=== PATIENT | female | born 1945 | race Asian ===

== ENCOUNTER 2016-05-29 13:17 | Emergency (ER) | payer OTHER ==
[2016-05-29 13:21] VITALS: BP 126/60; PULSE 72; TEMP 97.5; BMI 28.7
--- NOTE | 2016-05-29 14:26 | PDOC ---
History of Present Illness - General Chief Complaint: Pain, Acute Stated Complaint: RT KNEE PAIN Time Seen by Provider: 05/29/16 13:48 History Source: Patient Exam Limitations: No Limitations - History of Present Illness Initial Comments: 05/29/16 14:03 71-year-old female presents to the ED with complaints of right knee pain. Patient states was at home when she had fall twisting her right knee and states pain has continued to the inner aspect of her right knee without weakness, previous injury to the affected area. Patient states mild edema with an abrasion that healed up and states pain is worsened with ambulation. 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 Occurred: reports: other Severity: reports: mild Pain Location: reports: lower extremity Method of Injury: Yes: fall Modifying Factors: improves with: None Loss of Consciousness: no loss of consciousness Associated Symptoms (Fall): trouble walking Past History - Past Medical History Allergies/Adverse Reactions: Allergies Allergy/AdvReac Type Severity Reaction Status Date / Time Penicillins Allergy Verified 05/29/16 13:21 Home Medications: Ambulatory Orders Amlodipine Besylate [Norvasc -] 5 mg PO DAILY 07/15/14 Ciprofloxacin [Cipro -] 250 mg PO BID #6 tablet 07/16/14 HTN: Yes Thyroid Disease: Yes - Immunization History Immunization Up to Date: No - Psycho/Social/Smoking Cessation Hx Anxiety: No Suicidal Ideation: No Smoking History: Never smoked Have you smoked in the past 12 months: No Information on smoking cessation initiated: No Hx Alcohol Use: No Drug/Substance Use Hx: No Substance Use Type: None Hx Substance Use Treatment: No Patient Lives Alone: No Lives with/in: spouse/SO Review of Systems - Review of Systems Able to Perform ROS?: Yes Constitutional: No: Symptoms Reported Musculoskeletal: Yes: Joint Pain (right knee), Joint Swelling (right knee) Integumentary: No: Symptoms Reported Neurological: No: Symptoms reported Hematologic/Lymphatic: No: Symptoms Reported *Physical Exam - Vital Signs Last Vital Signs Temp Pulse Resp BP Pulse Ox 97.5 F L 72 18 126/60 98 05/29/16 13:19 05/29/16 13:19 05/29/16 13:19 05/29/16 13:19 05/29/16 13:19 - Physical Exam General Appearance: Yes: Nourished, Appropriately Dressed. No: Apparent Distress Vascular Pulses: Dorsalis-Pedis (R): 2+ Extremity: positive: Normal Capillary Refill, Normal Inspection, Normal Range of Motion, Tender (over the right meniscus) Integumentary: positive: Normal Color, Warm, Moist Neurologic: positive: Motor Strength 5/5 (ambulatory) ED Treatment Course - RADIOLOGY Radiology Studies Ordered: Category Date Time Status KNEE 3 POS-RIGHT [RAD] Stat Radiology 05/29/16 14:12 Taken Medical Decision Making - Medical Decision Making 05/29/16 14:25 Patient will continual right knee pain for the past 3 weeks after falling and twisting the knee. Patient states pain is worsened today and her aspect and worsened as the day goes on with ambulation. Patient on exam had tenderness over the meniscus. Patient requesting x-ray although I recommend patient see orthopedist and consider other imaging such as an MRI. Patient also requesting a work note since she works upstairs as a medical laboratory technician. 05/29/16 14:40 X-ray shows no acute fracture but with noted swelling to the anterior aspect. Patient will be given orthopedic referral work 2 days and an Bashir wrap. Patient also recommended to take Motrin 400 mg every 8 hours *DC/Admit/Observation/Transfer Diagnosis at time of Disposition: Knee meniscus pain Qualifiers: Laterality: right Qualified Code(s): M25.561 - Pain in right knee - Discharge Dispostion Disposition: HOME Condition at time of disposition: Guarded - Referrals Referrals: Bryce Ulloa MD [Primary Care Provider] - Delonte Orosco MD [Staff Physician] - - Patient Instructions Printed Discharge Instructions: DI for Knee Pain, DI for Knee Effusion Additional Instructions: Please take Motrin 400 mg every 8 hours for inflammation and discomfort. Elevate your extremity when not walking. Use Bashir wrap during the day and remove at night. Please follow-up with referred orthopedist. - Post Discharge Activity Work/School Note: Back to Work
== END 2016-05-29 14:56 | disposition home or self-care (01) ==
LOC: JERFT 13:17
DX: M25.561 Pain in right knee (principal); M25.461 Effusion, right knee; X50.1XXA Overexertion from prolonged static or awkward postures, initial encounter; Y93.89 Activity, other specified; Y92.89 Other specified places as the place of occurrence of the external cause; W18.39XA Other fall on same level, initial encounter; I10 Essential (primary) hypertension; E07.9 Disorder of thyroid, unspecified
CPT/HCPCS: 73562-TC-RT; 99281-25

== ENCOUNTER 2016-07-09 06:13 | Day surgery (SDC) | payer OTHER ==
[2016-07-08 15:42] VITALS: BMI 27.1
[2016-07-09] MEDS ORDERED: DESFLURANE GAS 240 ML BOTTLE IH ONE (07:37)
--- NOTE | 2016-07-09 07:37 | HP ---
Satellite [facility] - Chief Complaint Chief Complaint: right knee pain History Source: Patient Limitations to Obtaining History: No Limitations - Past Medical History Allergies/Adverse Reactions: Allergies Allergy/AdvReac Type Severity Reaction Status Date / Time Penicillins Allergy "RASH,NAUSE Verified 07/08/16 15:43 A,HEADACHE, DIZZYNESS" Cardiovascular: Yes: HTN Endocrine: Yes: Hypothyroidism - Current Medications Current Medications: Home Medications Medication Instructions Recorded Amlodipine Besylate [Norvasc -] 5 mg PO BID 07/15/14 Diazepam [Valium] 5 mg PO PRN PRN 07/08/16 Ibuprofen [Advil -] 200 mg PO PRN PRN 07/08/16 Levothyroxine [Synthroid -] 112 mcg PO DAILY 07/08/16 Triamterene/Hydrochlorothiazid 1 each PO DAILY 07/09/16 [Dyazide 37.5-25 Capsule] Satellite Physical Exam - Physical Examination Vital Signs: Vital Signs Period Temp Pulse Resp BP Sys/Hair Pulse Ox Last 24 Hr 97.5 F-97.5 F 76-76 20-20 132-132/74-74 96 Extremities: Other (right joint line tenderness) Satellite Impression/Plan - Impression/Plan Impression: internal derangement right knee Operative Procedure: arthroscopy right knee Date to be Performed: 07/09/16
[2016-07-09] MEDS ORDERED: LIDOCAINE HCL/PF 2% SDV 5ML VIAL ONE (07:38)
[2016-07-09] MEDS ORDERED: MIDAZOLAM HCL 2 MG/2 ML SINGLE DOSE VIAL ONE (07:39)
[2016-07-09] MEDS ORDERED: PROPOFOL 20 ML ONE (07:39)
--- NOTE | 2016-07-09 08:05 | OP ---
Operative Note - Note: Operative Date: 07/09/16 Pre-Operative Diagnosis: internal derangement right knee Operation: arthroscopy right knee with partial MM Post-Operative Diagnosis: Same as Pre-op Surgeon: Delonte Orosco Anesthesia: General Estimated Blood Loss (mls): 0 Operative Report Dictated: Yes
[2016-07-09] MEDS ORDERED: PROMETHAZINE HCL 25 MG/1 ML VIAL IVPUSH PRN (08:17)
[2016-07-09] MEDS ORDERED: oxyCODONE HCL 5 MG TABLET PO PRN (08:17)
[2016-07-09] MEDS ORDERED: ONDANSETRON 4 MG/2 ML VIAL IVPUSH PRN (08:17)
--- NOTE | 2016-07-09 08:48 | SPEC ---
DATE OF OPERATION: 07/09/2016 PREOPERATIVE DIAGNOSIS: Internal derangement, right knee. POSTOPERATIVE DIAGNOSIS: Internal derangement, right knee. PROCEDURE: Arthroscopy, right knee, with partial medial meniscectomy. SURGICAL ATTENDING: Delonte Orosco M.D. ANESTHESIA: General with LMA. CLOSURE: 4-0 nylon. COMPLICATIONS: None. CONDITION: To recovery room in stable condition. DESCRIPTION OF OPERATIVE PROCEDURE: Patient was taken to the operating room and general anesthesia with LMA was administered by the anesthesiologist. Right lower extremity was prepped and draped in usual sterile fashion. The supralateral and medial lateral infrapatellar portal sites were infiltrated with 1% Xylocaine with epinephrine. Supralateral portal was made with a 15 blade blunt trocar. The right knee was aspirated and inflated with a cocktail of 10 mL of 1% Xylocaine with 0.5% Marcaine and 20 mL of arthroscopic saline. Medial and lateral infrapatellar portals were then made with a 15 blade blunt trocar. The scope was placed in the lateral infrapatellar portal and up into the suprapatellar pouch. Pouch was visualized to be clean. The medial and lateral gutters were visualized to be clean. The undersurface of the patella and trochlea were visualized to be intact. With valgus stress on the knee, the medial compartment was entered and medial meniscus was visualized, probed, and found to have a complex tear of the posterior horn. This was debrided back to smooth and stable meniscal tissue using meniscal biters and arthroscopic shaver. Medial femoral condyle was run and found to be intact as was the medial tibial plateau. At 90 degrees the ACL was visualized, probed and found to be intact. In the figure four position, the lateral compartment was entered. Lateral meniscus was visualized, probed and found to be intact. The lateral femoral condyle was run and found to be intact as was the lateral tibial plateau. The knee was irrigated with copious amounts of irrigation. The portals were closed with 4-0 nylon. Prior to closure of the supralateral portal, 20 mL of 0.5% Marcaine was infused through the outflow portal prior to pulling the cannula. Sterile pressure dressing was placed over the knee. Patient was awakened from anesthesia and transferred to recovery room in stable condition. No complications. Estimated blood loss was negligible. DELONTE OROSCO M.D. [id number]
[2016-07-09 09:22] VITALS: TEMP 97.8
[2016-07-09 11:20] VITALS: BP 143/72; PULSE 78
--- NOTE | 2016-07-12 12:13 | PATH ---
Surgical Pathology Report Patient Name: CATHIE DELGADO [facility]. Rec. #: [id number] /Age/Gender: 1945 (Age: 71) / F Account: [id number] Location: [facility] SURGICAL Taken: 07/09/2016 Received: 07/09/2016 Reported: 07/12/2016 Physicians: Delonte Orosco M.D. 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 Electronically Signed Bert Mckenzie M.D. Gross Description Received in formalin, labeled "right knee shavings" is a 4.5 x 3.7 x 0.4 cm aggregate of brady-yellow soft tissue fragments. A sales representative girls' apparel portion is submitted in one cassette. 07/09/201607/09/2016
== END 2016-07-09 11:30 | disposition home or self-care (01) ==
LOC: JASU-SURG 06:13
PROVIDERS: ATTEND Orthopaedic Surgery
PROC: 0SBC4ZZ Excision of Right Knee Joint, Percutaneous Endoscopic Approach (ICD-10-PCS; principal; 2016-07-09 07:30)
DX: S83.231A Complex tear of medial meniscus, current injury, right knee, initial encounter (principal); X58.XXXA Exposure to other specified factors, initial encounter; Y93.9 Activity, unspecified; Y92.9 Unspecified place or not applicable; Y99.9 Unspecified external cause status
CPT/HCPCS: 88304-TC; 94760; 97116-GP

== ENCOUNTER 2018-03-21 16:48 | Emergency (ER) | payer OTHER ==
[2018-03-21 17:09] VITALS: PULSE 78; TEMP 97.6; BMI 26.2
--- NOTE | 2018-03-21 17:09 | PDOC ---
Rapid Medical Evaluation Time Seen by Provider: 03/21/18 17:06 Medical Evaluation: Allergies Allergy/AdvReac Type Severity Reaction Status Date / Time Penicillins Allergy "RASH,NAUSE Verified 03/21/18 17:04 A,HEADACHE, DIZZYNESS" 03/21/18 17:06 Pt presents for high blood pressure. Working on medications with PMH. Has headache now. Hx of migraines Exam: BP 193/77. NAD Orders: Labs, urine, iv insert Pt to proceed to ED for further evaluation PCP :Dr. Cannon Discharge Disposition - Diagnosis High blood pressure Qualifiers: Hypertension type: unspecified Qualified Code(s): I10 - Essential (primary) hypertension - Referrals - Patient Instructions - Post Discharge Activity
[2018-03-21 17:30] LABS: BASO % 0.2 % (0-2.0); EOS % 2.4 % (0-4.5); HEMATOCRIT 36.5 % (32.4-45.2); HEMOGLOBIN 12.3 GM/dL (10.7-15.3); LYMPH % 37.3 % (8-40); MCH 25.8 pg (25.7-33.7); MCHC 33.7 g/dl (32.0-36.0); MEAN CELL VOLUME 76.6 fl (80-96); MEAN PLT VOLUME 8.8 fl (7.5-11.1); MONO % 4.6 % (3.8-10.2); NEUT % 55.5 % (42.8-82.8); PLATELET COUNT 291 K/MM3 (134-434); RBC 4.77 M/mm3 (3.60-5.2); RDW 15.6 % (11.6-15.6); WHITE BLOOD COUNT 9.9 K/mm3 (4.0-10.0)
--- NOTE | 2018-03-21 17:40 | PDOC ---
Attending Attestation - HPI HPI: This patient is a 73 year old female, with PMHx of HTN &migraines, who presents with headache and elevated blood pressure today. Patient works at [employer], took her blood pressure, noted it to be very elevated, so she came to the ER. Patient also presents with headache. Patient notes to be uncompliant with blood pressure meds. Allergy:penicillins PCP :Dr. Ulloa - Physicial Exam PE: GENERAL: Well-appearing, well-nourished. No apparent distress. HEENT: Normocephalic, atraumatic. PERRL, EOM intact. CARDIOVASCULAR: Normal S1, S2. Regular rate and rhythm. PULMONARY: Clear to auscultation bilaterally. ABDOMEN: Soft, non-distended, non-tender. EXTREMITIES: Normal ROM in all four extremities. No gross deformities. SKIN: Warm, dry. No rash NEUROLOGICAL: No focal neurological deficits. <Chinyere Murillo - Last Filed: 03/21/18 18:28> - Resident Resident Name: Brent Melton - ED Attending Attestation I have performed the following: I have examined & evaluated the patient, The case was reviewed & discussed with the resident, I agree w/resident's findings & plan, Exceptions are as noted - HPI HPI: 03/21/18 17:37 today's ekg is nsr @ 83 bpm, lateral ischemia ,this is unchanged from her prior ekg of 07/16/2014 . Still has inverted t in V5,V6I,aVL 03/21/18 17:40 -this 73 yo female has long history of HTN and migraines . She admits to not being compliant with her blood pressure meds for past several months - Medical Decision Making 03/21/18 18:24 pt's BP came down without any intervention no ekg changes -no focal neuro deficits,no chest pain, no shortness of breath imp essential HTN,noncompliant w meds 03/21/18 18:35 pt discharged home <Marielos Dunham - Last Filed: 03/21/18 18:35> Attestations - Attestations 03/21/18 18:30 Documentation prepared by Chinyere Murillo, acting as biomedical engineer for Marielos Dunham MD <Chinyere Murillo - Last Filed: 03/21/18 18:28>
[2018-03-21] MEDS ORDERED: ACETAMINOPHEN 325 MG TABLET (FP) PO ONE (17:42)
--- NOTE | 2018-03-21 17:42 | PDOC ---
History of Present Illness - General Chief Complaint: Blood Pressure Problem Stated Complaint: HYPERTENSION Time Seen by Provider: 03/21/18 17:06 - History of Present Illness Initial Comments: 03/21/18 17:40 73 yo Female with PMH HTN, Hypothyroidism presents with complaint of elevated blood pressure and a headache. She states that her primary recently told her to take half of her Norvasc at night, however she states she has not been taking it regularly. She state that she has a headache very regularly when her blood pressure is high. She endorses a systolic pressure of 177 upstairs prior to finishing her shift which is why she came downstairs to the ER after her shift ended. She does state that she took both her Norvasc and her Triamterene/HCTZ this AM. She admits to having increased stress levels recently, especially when she is at work. Past History - Travel Traveled outside of the country in the last 30 days: No - Past Medical History Allergies/Adverse Reactions: Allergies Allergy/AdvReac Type Severity Reaction Status Date / Time Penicillins Allergy "RASH,NAUSE Verified 03/21/18 17:04 A,HEADACHE, DIZZYNESS" Home Medications: Ambulatory Orders Amlodipine Besylate [Norvasc -] 5 mg PO BID 07/15/14 Diazepam [Valium] 5 mg PO PRN PRN 07/08/16 Ibuprofen [Advil -] 200 mg PO PRN PRN 07/08/16 Levothyroxine [Synthroid -] 112 mcg PO DAILY 07/08/16 Oxycodone HCl/Acetaminophen [Percocet 5-325 mg Tablet -] 1 - 2 tab PO Q6H #60 tab MDD 6 07/09/16 Triamterene/Hydrochlorothiazid [Dyazide 37.5-25 Capsule] 1 each PO DAILY COPD: No HTN: Yes Thyroid Disease: Yes (Hypothyroid) - Immunization History Immunization Up to Date: No - Suicide/Smoking/Psychosocial Hx Smoking History: Never smoked Have you smoked in the past 12 months: No Hx Alcohol Use: No Drug/Substance Use Hx: No Substance Use Type: None Hx Substance Use Treatment: No Review of Systems - Review of Systems HEENTM: No: Eye Pain, Blurred Vision, Double Vision Respiratory: No: Shortness of Breath, SOB with Exertion Cardiac (ROS): No: Chest Pain, Edema, Palpitations : No: Burning, Dysuria, Discharge, Frequency, Hematuria Neurological: Yes: Headache *Physical Exam - Vital Signs Last Vital Signs Temp Pulse Resp BP Pulse Ox 97.6 F 78 19 193/77 H 99 03/21/18 17:05 03/21/18 17:05 03/21/18 17:05 03/21/18 17:05 03/21/18 17:05 - Physical Exam Comments: 03/21/18 18:02 GEN: A&O, no acute distress HEENT: moist mucus membranes, PERRLA NECK: supple, no lymphadenopathy LUNGS: CTA b/l, no wheezes HEART: RRR, no murmurs or rubs ABDOMEN: Soft, nontender, normoactive bowel sounds EXTREMITIES: no edema, no calf tenderness Moderate Sedation - Procedure Monitoring Vital Signs: Procedure Monitoring Vital Signs Temperature 97.6 F 03/21/18 17:05 Pulse Rate 78 03/21/18 17:05 Respiratory Rate 19 03/21/18 17:05 Blood Pressure 193/77 H 03/21/18 17:05 O2 Sat by Pulse Oximetry (%) 99 03/21/18 17:05 ED Treatment Course - LABORATORY CBC & Chemistry Diagram: 03/21/18 17:18 03/21/18 17:18 - ADDITIONAL ORDERS Additional order review: 03/21/18 17:18 RBC 4.77 MCV 76.6 L MCHC 33.7 RDW 15.6 MPV 8.8 Neutrophils % 55.5 Lymphocytes % 37.3 Monocytes % 4.6 Eosinophils % 2.4 Basophils % 0.2 Medical Decision Making - Medical Decision Making 03/21/18 18:04 Pt states she took both of her b.p meds this AM. Repeat b.p 168/69 Tylenol given for headache UA noted with trace LE and 8 WBCs, pt asymptomatic, results consistent with prior visits. Dispo: can likely d/c with follow up by primary for better blood pressure control. will counseling services director patient about medication compliance *DC/Admit/Observation/Transfer Diagnosis at time of Disposition: High blood pressure Qualifiers: Hypertension type: unspecified Qualified Code(s): I10 - Essential (primary) hypertension - Discharge Dispostion Disposition: HOME Condition at time of disposition: Stable Decision to Admit order: No - Referrals Referrals: Bryce Ulloa MD [Staff Physician] - - Patient Instructions Printed Discharge Instructions: DI for High Blood Pressure, How to Monitor Your Blood Pressure at Home Additional Instructions: You were evaluated in the emergency room for elevated blood pressure. Your blood pressure improved prior to receiving any additional blood pressure medications. You are medically safe for discharge home at this point. It is important that you follow up with your primary care physician within one week in order to better control your blood pressure on a daily basis. It is also important that you take all of your blood pressure medication as it is prescribed and how your primary physician has instructed you. If you have any severe headache, blurred vision, localized weakness in any of your extremities or facial droop or numbness, or any other concerning symptoms, you should be evaluated by your primary doctor or return to the emergency department. Print Language: CUBAN - Post Discharge Activity
[2018-03-21] MEDS ORDERED: ACETAMINOPHEN 325 MG TABLET (FP) ONE (17:49)
[2018-03-21 17:50] LABS: URINE APPEARANCE CLEAR; URINE BILIRUBIN NEGATIVE (<2.0 mg/dL); URINE COLOR COLORLESS; URINE GLUCOSE (UA) NEGATIVE (NEGATIVE); URINE KETONE NEGATIVE (NEGATIVE); URINE LEUK ESTERASE TRACE (NEGATIVE); URINE NITRITE NEGATIVE (NEGATIVE); URINE PROTEIN NEGATIVE (NEGATIVE); URINE UROBILINOGEN NEGATIVE mg/dL (0.2-1.0)
[2018-03-21 17:58] LABS: ALBUMIN 3.8 g/dl (3.4-5.0); ALK PHOS 127 U/L (45-117); ANION GAP 6 MMOL/L (8-16); BILIRUBIN,TOTAL 0.2 mg/dL (0.2-1); BLOOD UREA NITROGEN 19 mg/dL (7-18); CALCIUM 9.3 mg/dL (8.5-10.1); CHLORIDE 96 mmol/L (98-107); CO2 29 mmol/L (21-32); GLUCOSE,RANDOM 129 mg/dL (74-106); POTASSIUM 3.8 mmol/L (3.5-5.1); SGOT/AST 25 U/L (15-37); SGPT/ALT 24 U/L (13-61); SODIUM 131 mmol/L (136-145); TOT PROT 8.6 g/dl (6.4-8.2)
[2018-03-21 18:10] VITALS: BP 168/69
[2018-03-21 19:06] LABS: EPI CELLS RARE /HPF (FEW)
--- NOTE | 2018-03-22 09:52 | EKG ---
Test Reason : Blood Pressure : / mmHG Vent. Rate : 083 BPM Atrial Rate : 083 BPM P-R Int : 174 ms QRS Dur : 080 ms QT Int : 366 ms P-R-T Axes : 048 015 100 degrees QTc Int : 430 ms NORMAL SINUS RHYTHM POSSIBLE LEFT ATRIAL ENLARGEMENT ABNORMAL ECG WHEN COMPARED WITH ECG OF 16-JUL-2014 09:31, NO SIGNIFICANT CHANGE WAS FOUND Confirmed by ADY DAVIS, CHALO ([id number]) on 03/22/2018 9:52:29 AM Referred By: Confirmed By:CHALO GARSIA MD
== END 2018-03-21 18:42 | disposition home or self-care (01) ==
LOC: JER 16:48
DX: I10 Essential (primary) hypertension (principal); Z91.14 Patient's other noncompliance with medication regimen; Z86.69 Personal history of other diseases of the nervous system and sense organs
CPT/HCPCS: 36415; 80053; 81003; 81015; 85025; 87086; 93005; 93010; 99283-25

== ENCOUNTER 2019-12-21 21:03 | Inpatient (IN) | payer OTHER ==
[2019-12-21 21:09] VITALS: BMI 24.7
[2019-12-21] MEDS ORDERED: LACTATED RINGERS SOLUTION 1000 ML INFUS.BAG IV ONE (21:30)
[2019-12-21] MEDS ORDERED: ONDANSETRON 4 MG/2 ML VIAL IVPUSH ONE (21:38)
[2019-12-21 21:52] LABS: VENOUS BASE EXCESS -3.6 mmol/L (-2-2); VENOUS PCO2 34.4 mmHg (38-52); VENOUS PH 7.395 (7.310-7.410)
[2019-12-21 22:04] LABS: BASO % 0.1 % (0-2.0); HEMATOCRIT 36.1 % (32.4-45.2); HEMOGLOBIN 11.5 GM/dL (10.7-15.3); LYMPH % 4.8 % (8-40); MCH 24.7 pg (25.7-33.7); MCHC 31.9 g/dl (32.0-36.0); MEAN CELL VOLUME 77.6 fl (80-96); MEAN PLT VOLUME 8.7 fl (7.5-11.1); MONO % 2.7 % (3.8-10.2); NEUT % 92.4 % (42.8-82.8); PLATELET COUNT 291 K/MM3 (134-434); RBC 4.65 M/mm3 (3.60-5.2); RDW 14.5 % (11.6-15.6)
[2019-12-21 22:10] LABS: POTASSIUM 3.4 mmol/L (3.5-5.1)
[2019-12-21 22:12] LABS: ALBUMIN 3.4 g/dl (3.4-5.0); BLOOD UREA NITROGEN 20.4 mg/dL (7-18); CALCIUM 9.6 mg/dL (8.5-10.1)
[2019-12-21 22:13] LABS: INR 1.11 (0.83-1.09); PROTHROMBIN TIME (PATIENT) 13.6 SEC (9.7-13.0)
[2019-12-21 22:16] LABS: ACTIVATED PTT 23.6 SECONDS (25.2-36.5)
[2019-12-21 22:17] LABS: BILIRUBIN,TOTAL 0.6 mg/dL (0.2-1); TOT PROT 7.9 g/dl (6.4-8.2)
[2019-12-21] MEDS ORDERED: VANCOMYCIN 1,000 MG in DEXTROSE 5%-WATER - 250 ML IVPB ONE (22:18)
[2019-12-21] MEDS ORDERED: CEFEPIME HCL/D5W 2 GM/50 ML BAG IVPB ONE (22:24)
[2019-12-21 22:25] LABS: WHITE BLOOD COUNT 33.9 K/mm3 (4.0-10.0)
[2019-12-21] MEDS ORDERED: CEFEPIME 2 GM/100 ML BAG IVPB ONE (22:25)
[2019-12-21 23:24] LABS: EPI CELLS 5 /uL (0-25.1); HYALINE CASTS 0 /uL (0-3.1); PH,URINE 6.5 (5.0-8.0); URINE APPEARANCE CLOUDY; URINE BACTERIA 1075 /uL (0-1359); URINE BILIRUBIN NEGATIVE (NEGATIVE); URINE COLOR YELLOW; URINE GLUCOSE (UA) NEGATIVE (NEGATIVE); URINE KETONE NEGATIVE (NEGATIVE); URINE LEUK ESTERASE 3+ (NEGATIVE); URINE NITRITE NEGATIVE (NEGATIVE); URINE PROTEIN 1+ (NEGATIVE); URINE RBC 40 /uL (0-23.9); URINE UROBILINOGEN 0.2 mg/dL (0.2-1.0); URINE WBC 1390 /uL (0-25.8)
[2019-12-21] MEDS ORDERED: VANCOMYCIN 1 GRAM (PRE-DOCKED) 1,000 MG/250 ML BAG IVPB ONE (23:28)
[2019-12-21 23:38] LABS: PLATELET ESTIMATE NORMAL
[2019-12-22] MEDS ORDERED: ASPIRIN 325 MG ENTERIC COATED TABLET (FP) PO ONE (04:23)
[2019-12-22] MEDS ORDERED: ASPIRIN 325 MG ENTERIC COATED TABLET (FP) ONE (04:33)
[2019-12-22] MEDS ORDERED: CEFTRIAXONE 1,000 MG in DEXTROSE 5%-WATER - 50 ML IVPB ONE (04:34)
[2019-12-22] MEDS ORDERED: AZITHROMYCIN IVPB 500 MG in DEXTROSE 5%-WATER - 250 ML IVPB SCH (04:34)
[2019-12-22] MEDS ORDERED: CEFTRIAXONE 1 GM/50 ML BAG ONE (04:41)
[2019-12-22] MEDS: SODIUM CHLORIDE 1,000 ML IV SCH (04:47)
[2019-12-22] MEDS: HEPARIN NA (PORCINE) 5,000 UNITS/ML 1ML VIAL SQ SCH ×3 (06:45→21:31)
[2019-12-22] MEDS ORDERED: LEVOTHYROXINE NA 100 MCG TABLET (FP) PO SCH (07:00)
[2019-12-22 07:16] LABS: HEMATOCRIT 33.1 % (32.4-45.2); HEMOGLOBIN 10.8 GM/dL (10.7-15.3); MCH 25.2 pg (25.7-33.7); MCHC 32.7 g/dl (32.0-36.0); MEAN CELL VOLUME 77.2 fl (80-96); MEAN PLT VOLUME 8.9 fl (7.5-11.1); PLATELET COUNT 230 K/MM3 (134-434); RBC 4.29 M/mm3 (3.60-5.2)
[2019-12-22 07:28] LABS: POTASSIUM 3.5 mmol/L (3.5-5.1)
[2019-12-22 07:35] LABS: ALBUMIN 2.8 g/dl (3.4-5.0); BLOOD UREA NITROGEN 18.2 mg/dL (7-18); CALCIUM 8.9 mg/dL (8.5-10.1); MAGNESIUM 1.6 mg/dL (1.8-2.4)
[2019-12-22 07:38] LABS: CREATININE 1.4 mg/dL (0.55-1.3)
[2019-12-22 07:39] LABS: BILIRUBIN,TOTAL 0.6 mg/dL (0.2-1)
[2019-12-22 07:49] LABS: WHITE BLOOD COUNT 34.4 K/mm3 (4.0-10.0)
[2019-12-22] MEDS ORDERED: cefTRIAXone SODIUM 1 GM VIAL ONE (09:13)
[2019-12-22] MEDS ORDERED: PT OWN MED DRAWER 7, Y5N ONE (09:13)
[2019-12-22] MEDS ORDERED: DEXTROSE 5%-WATER - 50 ML IVPB ONE (09:13)
[2019-12-22] MEDS: AZITHROMYCIN IVPB 500 MG/250 ML BAG IVPB SCH (09:33)
[2019-12-22] MEDS ORDERED: CEFTRIAXONE 1 GM in DEXTROSE 5%-WATER - 50 ML IVPB ONE (10:00)
[2019-12-22] MEDS ORDERED: ONDANSETRON 4 MG/2 ML VIAL IVPUSH PRN (11:29)
[2019-12-22] MEDS ORDERED: diazePAM 5 MG TABLET PO PRN (11:53)
[2019-12-22] MEDS ORDERED: DEXTROSE 5%-WATER 100 ML IVPB ONE ×2 (14:51→17:24)
[2019-12-22] MEDS ORDERED: MEROPENEM 1 GM VIAL (RESTRICTED TO ID) IVPB ONE ×2 (14:51→17:24)
[2019-12-22] MEDS: MEROPENEM 1 GM in DEXTROSE 5%-WATER 100 ML IVPB SCH ×2 (15:04→18:35)
[2019-12-22] MEDS: ACETAMINOPHEN 1000 MG/100 ML VIAL (NON FORMULARY) IVPB PRN (21:50)
[2019-12-23] MEDS ORDERED: MEROPENEM 1 GM VIAL (RESTRICTED TO ID) IVPB ONE ×3 (01:45→15:46)
[2019-12-23] MEDS ORDERED: DEXTROSE 5%-WATER 100 ML IVPB ONE ×3 (01:46→15:47)
[2019-12-23] MEDS: MEROPENEM 1 GM in DEXTROSE 5%-WATER 100 ML IVPB SCH ×3 (01:58→17:16)
[2019-12-23] MEDS: SODIUM CHLORIDE 1,000 ML IV SCH ×2 (05:03→06:12)
[2019-12-23] MEDS: ACETAMINOPHEN 1000 MG/100 ML VIAL (NON FORMULARY) IVPB PRN (05:04)
[2019-12-23] MEDS: HEPARIN NA (PORCINE) 5,000 UNITS/ML 1ML VIAL SQ SCH ×3 (06:12→22:11)
[2019-12-23] MEDS: LEVOTHYROXINE NA 125 MCG TABLET (FP) PO SCH (06:12)
[2019-12-23] MEDS ORDERED: LEVOTHYROXINE NA 112 MCG TABLET (FP) PO SCH (10:00)
[2019-12-23] MEDS: AZITHROMYCIN IVPB 500 MG/250 ML BAG IVPB SCH (10:26)
[2019-12-23 19:28] LABS: BASO % 0.2 % (0-2.0); HEMATOCRIT 31.1 % (32.4-45.2); HEMOGLOBIN 10.1 GM/dL (10.7-15.3); LYMPH % 9.6 % (8-40); MCH 25.2 pg (25.7-33.7); MCHC 32.4 g/dl (32.0-36.0); MEAN CELL VOLUME 77.8 fl (80-96); MONO % 3.3 % (3.8-10.2); NEUT % 86.9 % (42.8-82.8); PLATELET COUNT 170 K/MM3 (134-434); RBC 3.99 M/mm3 (3.60-5.2); RDW 14.4 % (11.6-15.6); WHITE BLOOD COUNT 20.2 K/mm3 (4.0-10.0)
[2019-12-23 19:47] LABS: POTASSIUM 3.1 mmol/L (3.5-5.1)
[2019-12-23 19:49] LABS: CALCIUM 8.5 mg/dL (8.5-10.1)
[2019-12-23 19:50] LABS: ALBUMIN 2.5 g/dl (3.4-5.0); BLOOD UREA NITROGEN 9.7 mg/dL (7-18)
[2019-12-23 19:53] LABS: CREATININE 1.2 mg/dL (0.55-1.3)
[2019-12-23 19:55] LABS: BILIRUBIN,TOTAL 0.4 mg/dL (0.2-1); TOT PROT 6.4 g/dl (6.4-8.2)
[2019-12-23 20:16] LABS: ANISOCYTOSIS 3+; MACROCYTOSIS 0
[2019-12-23] MEDS ORDERED: POTASSIUM CHLORIDE TABS 20 MEQ TABLET.ER (FP) PO ONE (22:07)
[2019-12-23] MEDS ORDERED: ACETAMINOPHEN 1000 MG/100 ML VIAL (NON FORMULARY) IVPB ONE (22:25)
[2019-12-24] MEDS ORDERED: MEROPENEM 1 GM VIAL (RESTRICTED TO ID) IVPB ONE ×2 (00:31→08:59)
[2019-12-24] MEDS ORDERED: DEXTROSE 5%-WATER 100 ML IVPB ONE ×2 (00:32→08:59)
[2019-12-24] MEDS: MEROPENEM 1 GM in DEXTROSE 5%-WATER 100 ML IVPB SCH ×3 (01:15→18:26)
[2019-12-24] MEDS ORDERED: ACETAMINOPHEN 325 MG TABLET (FP) PO ONE (06:06)
[2019-12-24] MEDS: HEPARIN NA (PORCINE) 5,000 UNITS/ML 1ML VIAL SQ SCH ×3 (06:14→21:42)
[2019-12-24] MEDS: LEVOTHYROXINE NA 125 MCG TABLET (FP) PO SCH (06:14)
[2019-12-24] MEDS: SODIUM CHLORIDE 1,000 ML IV SCH (06:14)
[2019-12-24 06:54] LABS: BASO % 0.7 % (0-2.0); EOS % 0.1 % (0-4.5); HEMATOCRIT 34.3 % (32.4-45.2); HEMOGLOBIN 11.1 GM/dL (10.7-15.3); LYMPH % 17.6 % (8-40); MCH 25.1 pg (25.7-33.7); MCHC 32.2 g/dl (32.0-36.0); MEAN CELL VOLUME 77.9 fl (80-96); MEAN PLT VOLUME 9.2 fl (7.5-11.1); MONO % 3.8 % (3.8-10.2); NEUT % 77.8 % (42.8-82.8); PLATELET COUNT 191 K/MM3 (134-434); RBC 4.41 M/mm3 (3.60-5.2); RDW 14.5 % (11.6-15.6); WHITE BLOOD COUNT 15.2 K/mm3 (4.0-10.0)
[2019-12-24 07:13] LABS: POTASSIUM 3.2 mmol/L (3.5-5.1)
[2019-12-24 07:22] LABS: ALBUMIN 2.6 g/dl (3.4-5.0); CALCIUM 7.8 mg/dL (8.5-10.1)
[2019-12-24 07:25] LABS: CREATININE 1.2 mg/dL (0.55-1.3)
[2019-12-24 07:27] LABS: BILIRUBIN,TOTAL 0.9 mg/dL (0.2-1); TOT PROT 7.1 g/dl (6.4-8.2)
[2019-12-24] MEDS: AZITHROMYCIN IVPB 500 MG/250 ML BAG IVPB SCH (09:49)
[2019-12-24] MEDS ORDERED: POTASSIUM CHLORIDE ORAL LIQUID 20 MEQ/15 ML PO ONE (10:35)
[2019-12-24] MEDS: ACETAMINOPHEN 500 MG TABLET (FP) PO PRN (16:40)
[2019-12-25] MEDS: ACETAMINOPHEN 500 MG TABLET (FP) PO PRN ×2 (01:06→14:56)
[2019-12-25] MEDS ORDERED: MEROPENEM 1 GM VIAL (RESTRICTED TO ID) IVPB ONE ×3 (02:16→20:14)
[2019-12-25] MEDS ORDERED: DEXTROSE 5%-WATER 100 ML IVPB ONE ×3 (02:16→20:14)
[2019-12-25] MEDS: MEROPENEM 1 GM in DEXTROSE 5%-WATER 100 ML IVPB SCH ×3 (02:19→20:40)
[2019-12-25] MEDS: SODIUM CHLORIDE 1,000 ML IV SCH ×3 (02:20→20:46)
[2019-12-25] MEDS: HEPARIN NA (PORCINE) 5,000 UNITS/ML 1ML VIAL SQ SCH ×3 (05:57→21:33)
[2019-12-25] MEDS: LEVOTHYROXINE NA 125 MCG TABLET (FP) PO SCH (06:03)
[2019-12-25 07:41] LABS: BASO % 0.7 % (0-2.0); EOS % 0.3 % (0-4.5); HEMATOCRIT 30.2 % (32.4-45.2); HEMOGLOBIN 9.9 GM/dL (10.7-15.3); LYMPH % 34.1 % (8-40); MCH 25.4 pg (25.7-33.7); MEAN CELL VOLUME 77.1 fl (80-96); MEAN PLT VOLUME 8.7 fl (7.5-11.1); MONO % 8.5 % (3.8-10.2); NEUT % 56.4 % (42.8-82.8); PLATELET COUNT 190 K/MM3 (134-434); RBC 3.91 M/mm3 (3.60-5.2); RDW 14.3 % (11.6-15.6); WHITE BLOOD COUNT 10.7 K/mm3 (4.0-10.0)
[2019-12-25 07:47] LABS: POTASSIUM 3.4 mmol/L (3.5-5.1)
[2019-12-25 07:55] LABS: ALBUMIN 2.5 g/dl (3.4-5.0); CALCIUM 8.5 mg/dL (8.5-10.1)
[2019-12-25 07:56] LABS: BLOOD UREA NITROGEN 9.5 mg/dL (7-18)
[2019-12-25 07:59] LABS: BILIRUBIN,TOTAL 0.4 mg/dL (0.2-1); TOT PROT 6.5 g/dl (6.4-8.2)
[2019-12-25] MEDS: AZITHROMYCIN IVPB 500 MG/250 ML BAG IVPB SCH (10:36)
[2019-12-25 11:25] LABS: MAGNESIUM 1.6 mg/dL (1.8-2.4)
[2019-12-25] MEDS ORDERED: MAGNESIUM SULFATE IN WATER 2 GM/50 ML IVPB IVPB ONE (12:26)
[2019-12-25] MEDS ORDERED: POTASSIUM CHLORIDE TABS 20 MEQ TABLET.ER (FP) PO ONE (14:00)
[2019-12-26] MEDS ORDERED: MEROPENEM 1 GM VIAL (RESTRICTED TO ID) IVPB ONE ×3 (02:14→16:57)
[2019-12-26] MEDS: ACETAMINOPHEN 500 MG TABLET (FP) PO PRN ×2 (02:18→22:12)
[2019-12-26] MEDS: MEROPENEM 1 GM in DEXTROSE 5%-WATER 100 ML IVPB SCH ×3 (03:33→16:59)
[2019-12-26] MEDS: HEPARIN NA (PORCINE) 5,000 UNITS/ML 1ML VIAL SQ SCH ×3 (06:24→21:57)
[2019-12-26] MEDS: LEVOTHYROXINE NA 125 MCG TABLET (FP) PO SCH (06:25)
[2019-12-26] MEDS: SODIUM CHLORIDE 1,000 ML IV SCH (06:25)
[2019-12-26 07:29] LABS: BASO % 0.7 % (0-2.0); EOS % 0.8 % (0-4.5); HEMATOCRIT 30.8 % (32.4-45.2); HEMOGLOBIN 10.2 GM/dL (10.7-15.3); LYMPH % 32.1 % (8-40); MCH 25.7 pg (25.7-33.7); MCHC 33.2 g/dl (32.0-36.0); MEAN CELL VOLUME 77.5 fl (80-96); MEAN PLT VOLUME 8.7 fl (7.5-11.1); MONO % 10.9 % (3.8-10.2); NEUT % 55.5 % (42.8-82.8); PLATELET COUNT 197 K/MM3 (134-434); RBC 3.98 M/mm3 (3.60-5.2); RDW 14.3 % (11.6-15.6); WHITE BLOOD COUNT 8.9 K/mm3 (4.0-10.0)
[2019-12-26 07:41] LABS: POTASSIUM 3.6 mmol/L (3.5-5.1)
[2019-12-26 08:01] LABS: ALBUMIN 2.4 g/dl (3.4-5.0); BLOOD UREA NITROGEN 8.2 mg/dL (7-18); CALCIUM 8.5 mg/dL (8.5-10.1); MAGNESIUM 2.1 mg/dL (1.8-2.4)
[2019-12-26 08:04] LABS: CREATININE 0.9 mg/dL (0.55-1.3)
[2019-12-26 08:05] LABS: BILIRUBIN,TOTAL 0.4 mg/dL (0.2-1)
[2019-12-26 08:06] LABS: TOT PROT 6.6 g/dl (6.4-8.2)
[2019-12-26] MEDS ORDERED: DEXTROSE 5%-WATER 100 ML IVPB ONE ×2 (11:04→16:58)
[2019-12-26] MEDS: AZITHROMYCIN IVPB 500 MG/250 ML BAG IVPB SCH (11:39)
[2019-12-27] MEDS ORDERED: DEXTROSE 5%-WATER 100 ML IVPB ONE ×3 (02:47→18:37)
[2019-12-27] MEDS ORDERED: MEROPENEM 1 GM VIAL (RESTRICTED TO ID) IVPB ONE ×3 (02:47→18:37)
[2019-12-27] MEDS: MEROPENEM 1 GM in DEXTROSE 5%-WATER 100 ML IVPB SCH ×3 (02:49→18:52)
[2019-12-27] MEDS: SODIUM CHLORIDE 1,000 ML IV SCH (06:21)
[2019-12-27] MEDS: HEPARIN NA (PORCINE) 5,000 UNITS/ML 1ML VIAL SQ SCH ×3 (06:31→21:21)
[2019-12-27] MEDS: LEVOTHYROXINE NA 125 MCG TABLET (FP) PO SCH (06:31)
[2019-12-27] MEDS: AZITHROMYCIN IVPB 500 MG/250 ML BAG IVPB SCH (09:43)
[2019-12-28] MEDS ORDERED: MEROPENEM 1 GM VIAL (RESTRICTED TO ID) IVPB ONE ×3 (01:04→16:08)
[2019-12-28] MEDS ORDERED: DEXTROSE 5%-WATER 100 ML IVPB ONE ×3 (01:04→16:08)
[2019-12-28] MEDS: MEROPENEM 1 GM in DEXTROSE 5%-WATER 100 ML IVPB SCH ×3 (01:06→17:42)
[2019-12-28] MEDS: HEPARIN NA (PORCINE) 5,000 UNITS/ML 1ML VIAL SQ SCH ×3 (06:25→22:07)
[2019-12-28] MEDS: SODIUM CHLORIDE 1,000 ML IV SCH (07:24)
[2019-12-28] MEDS: LEVOTHYROXINE NA 125 MCG TABLET (FP) PO SCH (07:25)
[2019-12-28 07:49] LABS: POTASSIUM 3.8 mmol/L (3.5-5.1)
[2019-12-28 07:54] LABS: ALBUMIN 2.6 g/dl (3.4-5.0); BLOOD UREA NITROGEN 9.8 mg/dL (7-18); CALCIUM 9.3 mg/dL (8.5-10.1)
[2019-12-28 07:56] LABS: CREATININE 0.9 mg/dL (0.55-1.3)
[2019-12-28 07:58] LABS: BILIRUBIN,TOTAL 0.6 mg/dL (0.2-1)
[2019-12-28 08:02] LABS: BASO % 0.8 % (0-2.0); EOS % 1.1 % (0-4.5); HEMATOCRIT 33.1 % (32.4-45.2); HEMOGLOBIN 10.5 GM/dL (10.7-15.3); LYMPH % 31.6 % (8-40); MCH 24.5 pg (25.7-33.7); MCHC 31.5 g/dl (32.0-36.0); MEAN CELL VOLUME 77.8 fl (80-96); MEAN PLT VOLUME 8.6 fl (7.5-11.1); MONO % 8.9 % (3.8-10.2); NEUT % 57.6 % (42.8-82.8); PLATELET COUNT 357 K/MM3 (134-434); RBC 4.26 M/mm3 (3.60-5.2); RDW 14.6 % (11.6-15.6); WHITE BLOOD COUNT 13.2 K/mm3 (4.0-10.0)
[2019-12-28 11:04] LABS: ANISOCYTOSIS 0; MACROCYTOSIS 0; PLATELET ESTIMATE NORMAL
[2019-12-28] MEDS ORDERED: REGADENOSON 0.4 MG/5 ML PRE-FILLED SYRINGE IVPUSH ONE ×2 (11:26→11:30)
[2019-12-28] MEDS: ASPIRIN COATED 81 MG TABLET.EC PO SCH ×2 (16:07→19:17)
[2019-12-28] MEDS: metoPROLOL SUCCINATE 25 MG TAB.SR.24H (FP) PO SCH ×2 (16:07→19:18)
[2019-12-28] MEDS: ATORVASTATIN CA 10 MG TABLET (FP) PO SCH (22:07)
[2019-12-29] MEDS ORDERED: DEXTROSE 5%-WATER 100 ML IVPB ONE ×3 (03:03→18:05)
[2019-12-29] MEDS ORDERED: MEROPENEM 1 GM VIAL (RESTRICTED TO ID) IVPB ONE ×3 (03:03→18:04)
[2019-12-29] MEDS: MEROPENEM 1 GM in DEXTROSE 5%-WATER 100 ML IVPB SCH ×3 (03:14→18:21)
[2019-12-29] MEDS: SODIUM CHLORIDE 1,000 ML IV SCH (06:00)
[2019-12-29] MEDS: LEVOTHYROXINE NA 125 MCG TABLET (FP) PO SCH (07:02)
[2019-12-29] MEDS: ASPIRIN COATED 81 MG TABLET.EC PO SCH (10:23)
[2019-12-29] MEDS: metoPROLOL SUCCINATE 25 MG TAB.SR.24H (FP) PO SCH (10:24)
[2019-12-29] MEDS: ENALAPRIL MALEATE 5 MG TABLET PO SCH (12:24)
[2019-12-29] MEDS: ATORVASTATIN CA 10 MG TABLET (FP) PO SCH (21:10)
[2019-12-30] MEDS ORDERED: MEROPENEM 1 GM VIAL (RESTRICTED TO ID) IVPB ONE ×3 (01:14→16:15)
[2019-12-30] MEDS ORDERED: DEXTROSE 5%-WATER 100 ML IVPB ONE ×3 (01:14→16:15)
[2019-12-30] MEDS: MEROPENEM 1 GM in DEXTROSE 5%-WATER 100 ML IVPB SCH ×3 (01:37→17:47)
[2019-12-30] MEDS: LEVOTHYROXINE NA 100 MCG TABLET (FP) PO SCH (06:51)
[2019-12-30 07:17] LABS: BASO % 0.8 % (0-2.0); EOS % 1.9 % (0-4.5); HEMATOCRIT 32.4 % (32.4-45.2); HEMOGLOBIN 10.5 GM/dL (10.7-15.3); LYMPH % 17.1 % (8-40); MCH 25.3 pg (25.7-33.7); MCHC 32.5 g/dl (32.0-36.0); MONO % 6.8 % (3.8-10.2); NEUT % 73.4 % (42.8-82.8); PLATELET COUNT 380 K/MM3 (134-434); RBC 4.15 M/mm3 (3.60-5.2); RDW 14.9 % (11.6-15.6); WHITE BLOOD COUNT 11.6 K/mm3 (4.0-10.0)
[2019-12-30] MEDS ORDERED: PT OWN MED DRAWER 7, Y5N ONE (08:39)
[2019-12-30] MEDS: ASPIRIN COATED 81 MG TABLET.EC PO SCH (10:09)
[2019-12-30] MEDS: ENALAPRIL MALEATE 5 MG TABLET PO SCH (10:09)
[2019-12-30] MEDS: metoPROLOL SUCCINATE 25 MG TAB.SR.24H (FP) PO SCH (10:09)
[2019-12-30] MEDS: ENOXAPARIN NA (PORCINE) 40 MG/0.4 ML DISP.SYRIN SQ SCH (14:27)
[2019-12-30] MEDS: ATORVASTATIN CA 10 MG TABLET (FP) PO SCH (21:25)
[2019-12-31] MEDS ORDERED: MEROPENEM 1 GM VIAL (RESTRICTED TO ID) IVPB ONE ×2 (02:19→10:57)
[2019-12-31] MEDS ORDERED: DEXTROSE 5%-WATER 100 ML IVPB ONE ×2 (02:20→10:57)
[2019-12-31] MEDS: MEROPENEM 1 GM in DEXTROSE 5%-WATER 100 ML IVPB SCH ×2 (02:21→11:04)
[2019-12-31] MEDS: LEVOTHYROXINE NA 100 MCG TABLET (FP) PO SCH (06:50)
[2019-12-31] MEDS ORDERED: ENALAPRIL MALEATE 10 MG TABLET PO SCH (07:00)
[2019-12-31] MEDS: ENOXAPARIN NA (PORCINE) 40 MG/0.4 ML DISP.SYRIN SQ SCH (11:05)
[2019-12-31] MEDS: ASPIRIN COATED 81 MG TABLET.EC PO SCH (11:05)
[2019-12-31 15:16] VITALS: BP 147/66; PULSE 110; TEMP 98.5
== END 2019-12-31 16:24 | disposition home or self-care (01) | DRG 872 ==
LOC: JER 21:03 → JERBED 12-22 00:50 → JICU 12-22 06:10 → J4W 12-24 00:27
PROVIDERS: ADMIT Internal Medicine Hematology & Oncology; ATTEND Internal Medicine Hematology & Oncology
PROC: 02HV33Z Insertion of Infusion Device into Superior Vena Cava, Percutaneous Approach (ICD-10-PCS; principal; 2019-12-28)
PROC: B518ZZA Fluoroscopy of Superior Vena Cava, Guidance (ICD-10-PCS; 2019-12-28)
DX: A41.51 Sepsis due to Escherichia coli [E. coli] (principal); N17.9 Acute kidney failure, unspecified; N10 Acute pyelonephritis; N13.30 Unspecified hydronephrosis; E87.2 Acidosis; N39.0 Urinary tract infection, site not specified; Z16.12 Extended spectrum beta lactamase (ESBL) resistance; R65.20 Severe sepsis without septic shock; R53.1 Weakness; D72.829 Elevated white blood cell count, unspecified; I95.9 Hypotension, unspecified; E03.9 Hypothyroidism, unspecified; R91.1 Solitary pulmonary nodule; R19.7 Diarrhea, unspecified
CPT/HCPCS: 36415; 36569; 71250-TC; 74176-TC; 76775-TC; 77001-TC-FY; 78452-TC; 80053; 80061; 81003; 82550; 82553; 82803; 83605; 83721; 83735; 83880; 84100; 84439; 84443; 84484; 85025; 85027; 85610; 85730; 86480; 87040; 87086; 87186; 87804; 93005; 93010; 93017; 93306-TC; 97116-GP; 97161-GP; 99285-25; A9502; C1751; C9803; J0131; J1644; J2785; U0003

== ENCOUNTER 2020-08-29 15:50 | Inpatient (IN) | payer OTHER ==
[2020-08-29] MEDS ORDERED: SODIUM CHLORIDE 1,000 ML IV STA (17:21)
[2020-08-29] MEDS ORDERED: MEROPENEM 1 GM in DEXTROSE 5%-WATER 100 ML IVPB ONE (17:26)
[2020-08-29] MEDS ORDERED: MEROPENEM 1 GM VIAL (RESTRICTED TO ID) IVPB ONE (17:59)
[2020-08-29] MEDS ORDERED: LACTATED RINGERS SOLUTION 1,000 ML/1,000 ML INFUS.BAG IV SCH (18:00)
[2020-08-29 18:47] LABS: BASO % 0.2 % (0-2.0); EOS % 0.3 % (0-4.5); HEMATOCRIT 33.8 % (32.4-45.2); HEMOGLOBIN 11.6 GM/dL (10.7-15.3); LYMPH % 18.5 % (8-40); MCH 25.6 pg (25.7-33.7); MCHC 34.3 g/dl (32.0-36.0); MEAN CELL VOLUME 74.7 fl (80-96); MEAN PLT VOLUME 7.6 fl (7.5-11.1); MONO % 5.9 % (3.8-10.2); NEUT % 75.1 % (42.8-82.8); PLATELET COUNT 336 10^3/uL (134-434); RBC 4.53 M/mm3 (3.60-5.2); RDW 14.5 % (11.6-15.6); WHITE BLOOD COUNT 11.1 K/mm3 (4.0-10.0)
[2020-08-29 18:53] LABS: EPI CELLS 12 /uL (0-25.1); HYALINE CASTS 0 /uL (0-3.1); URINE APPEARANCE CLEAR; URINE BACTERIA 73 /uL (0-1359); URINE BILIRUBIN NEGATIVE (NEGATIVE); URINE COLOR YELLOW; URINE GLUCOSE (UA) NEGATIVE (NEGATIVE); URINE KETONE NEGATIVE (NEGATIVE); URINE LEUK ESTERASE TRACE (NEGATIVE); URINE NITRITE NEGATIVE (NEGATIVE); URINE PROTEIN NEGATIVE (NEGATIVE); URINE RBC 3 /uL (0-23.9); URINE UROBILINOGEN 0.2 mg/dL (0.2-1.0); URINE WBC 5 /uL (0-25.8)
[2020-08-29 19:05] LABS: CHLORIDE 84 mmol/L (98-107)
[2020-08-29 19:09] LABS: ALBUMIN 3.3 g/dl (3.4-5.0); BLOOD UREA NITROGEN 14.5 mg/dL (7-18); CALCIUM 8.9 mg/dL (8.5-10.1)
[2020-08-29 19:10] LABS: GLUCOSE,RANDOM 92 mg/dL (74-106)
[2020-08-29 19:12] LABS: SGOT/AST 14 U/L (15-37); SGPT/ALT 21 U/L (13-61)
[2020-08-29 19:14] LABS: BILIRUBIN,TOTAL 0.4 mg/dL (0.2-1); TOT PROT 7.7 g/dl (6.4-8.2)
[2020-08-29 19:15] LABS: ALK PHOS 156 U/L (45-117)
[2020-08-29 19:19] LABS: ANION GAP 9 MMOL/L (8-16); CO2 26 mmol/L (21-32); SODIUM 119 mmol/L (136-145)
[2020-08-30] MEDS ORDERED: SODIUM CHLORIDE 1,000 ML IV SCH (00:45)
[2020-08-30] MEDS: LEVOTHYROXINE NA 100 MCG TABLET (FP) PO SCH (06:00)
[2020-08-30 06:17] VITALS: BMI 26.3
[2020-08-30 10:00] LABS: CALCIUM 8.9 mg/dL (8.5-10.1)
[2020-08-30 10:01] LABS: BLOOD UREA NITROGEN 11.2 mg/dL (7-18)
[2020-08-30] MEDS ORDERED: PT OWN MED DRAWER 7, Y5N ONE (10:06)
[2020-08-30] MEDS: metoPROLOL SUCCINATE 25 MG TAB.SR.24H (FP) PO SCH (10:10)
[2020-08-30] MEDS: HEPARIN NA (PORCINE) 5,000 UNITS/ML 1ML VIAL SQ SCH ×2 (10:10→21:39)
[2020-08-30] MEDS: ASPIRIN COATED 81 MG TABLET.EC PO SCH (10:10)
[2020-08-30] MEDS: LACTOBACILLUS ACIDOPHILUS 1 TABLET PO SCH (10:10)
[2020-08-30] MEDS: ERTAPENEM SODIUM 1 GM in SODIUM CHLORIDE 50 ML IVPB SCH (10:10)
[2020-08-30] MEDS: ATORVASTATIN CA 10 MG TABLET (FP) PO SCH (21:39)
[2020-08-31] MEDS: LEVOTHYROXINE NA 100 MCG TABLET (FP) PO SCH (06:30)
[2020-08-31 08:58] LABS: CALCIUM 9.2 mg/dL (8.5-10.1)
[2020-08-31 08:59] LABS: ALBUMIN 3.3 g/dl (3.4-5.0); BLOOD UREA NITROGEN 12.6 mg/dL (7-18)
[2020-08-31 09:04] LABS: BILIRUBIN,TOTAL 0.4 mg/dL (0.2-1); TOT PROT 7.5 g/dl (6.4-8.2)
[2020-08-31] MEDS ORDERED: PT OWN MED DRAWER 7, Y5N ONE (09:58)
[2020-08-31] MEDS: ERTAPENEM SODIUM 1 GM in SODIUM CHLORIDE 50 ML IVPB SCH (10:07)
[2020-08-31] MEDS: LACTOBACILLUS ACIDOPHILUS 1 TABLET PO SCH (10:08)
[2020-08-31] MEDS: ASPIRIN COATED 81 MG TABLET.EC PO SCH (10:08)
[2020-08-31] MEDS: HEPARIN NA (PORCINE) 5,000 UNITS/ML 1ML VIAL SQ SCH ×2 (10:08→21:12)
[2020-08-31] MEDS: metoPROLOL SUCCINATE 25 MG TAB.SR.24H (FP) PO SCH (10:08)
[2020-08-31] MEDS: ATORVASTATIN CA 10 MG TABLET (FP) PO SCH (21:12)
[2020-09-01] MEDS: LEVOTHYROXINE NA 100 MCG TABLET (FP) PO SCH (06:20)
[2020-09-01 09:50] LABS: CALCIUM 9.2 mg/dL (8.5-10.1)
[2020-09-01 09:51] LABS: BLOOD UREA NITROGEN 13.1 mg/dL (7-18)
[2020-09-01] MEDS: HEPARIN NA (PORCINE) 5,000 UNITS/ML 1ML VIAL SQ SCH ×2 (11:20→22:12)
[2020-09-01] MEDS: ERTAPENEM SODIUM 1 GM in SODIUM CHLORIDE 50 ML IVPB SCH (11:21)
[2020-09-01] MEDS: LACTOBACILLUS ACIDOPHILUS 1 TABLET PO SCH (11:21)
[2020-09-01] MEDS: ASPIRIN COATED 81 MG TABLET.EC PO SCH (11:21)
[2020-09-01] MEDS: metoPROLOL SUCCINATE 25 MG TAB.SR.24H (FP) PO SCH (11:22)
[2020-09-01] MEDS: SODIUM CHLORIDE 1 GM TABLET PO SCH ×2 (14:09→22:12)
[2020-09-01] MEDS: ATORVASTATIN CA 10 MG TABLET (FP) PO SCH (22:12)
[2020-09-02] MEDS: LEVOTHYROXINE NA 100 MCG TABLET (FP) PO SCH (06:23)
[2020-09-02] MEDS ORDERED: PT OWN MED DRAWER 7, Y5N ONE (09:59)
[2020-09-02] MEDS: SODIUM CHLORIDE 1 GM TABLET PO SCH ×2 (10:22→23:03)
[2020-09-02] MEDS: ASPIRIN COATED 81 MG TABLET.EC PO SCH (10:22)
[2020-09-02] MEDS: LACTOBACILLUS ACIDOPHILUS 1 TABLET PO SCH (10:22)
[2020-09-02] MEDS: ERTAPENEM SODIUM 1 GM in SODIUM CHLORIDE 50 ML IVPB SCH (10:23)
[2020-09-02] MEDS: metoPROLOL SUCCINATE 25 MG TAB.SR.24H (FP) PO SCH (10:23)
[2020-09-02] MEDS: HEPARIN NA (PORCINE) 5,000 UNITS/ML 1ML VIAL SQ SCH ×2 (10:23→23:03)
[2020-09-02] MEDS: ATORVASTATIN CA 10 MG TABLET (FP) PO SCH (23:03)
[2020-09-02] MEDS: NITROFURANTOIN MACROCRYSTAL 50 MG CAPSULE (FP) PO SCH (23:53)
[2020-09-03] MEDS: NITROFURANTOIN MACROCRYSTAL 50 MG CAPSULE (FP) PO SCH ×2 (06:32→12:04)
[2020-09-03] MEDS: LEVOTHYROXINE NA 100 MCG TABLET (FP) PO SCH (06:32)
[2020-09-03 09:49] LABS: ALBUMIN 3.3 g/dl (3.4-5.0); CALCIUM 9.5 mg/dL (8.5-10.1)
[2020-09-03 09:53] LABS: BILIRUBIN,TOTAL 0.3 mg/dL (0.2-1)
[2020-09-03 09:54] LABS: TOT PROT 7.7 g/dl (6.4-8.2)
[2020-09-03] MEDS: SODIUM CHLORIDE 1 GM TABLET PO SCH (10:26)
[2020-09-03] MEDS: ASPIRIN COATED 81 MG TABLET.EC PO SCH (10:26)
[2020-09-03] MEDS: metoPROLOL SUCCINATE 25 MG TAB.SR.24H (FP) PO SCH (10:26)
[2020-09-03] MEDS: HEPARIN NA (PORCINE) 5,000 UNITS/ML 1ML VIAL SQ SCH (10:27)
[2020-09-03] MEDS: LACTOBACILLUS ACIDOPHILUS 1 TABLET PO SCH (10:27)
[2020-09-03 14:37] VITALS: BP 133/57; PULSE 68; TEMP 98.2
== END 2020-09-03 16:22 | disposition home or self-care (01) | DRG 690 ==
LOC: JER 15:50 → JERBED 17:42 → J6S 21:54
PROVIDERS: ADMIT Internal Medicine; ATTEND Internal Medicine
DX: N39.0 Urinary tract infection, site not specified (principal); Z16.12 Extended spectrum beta lactamase (ESBL) resistance; E87.1 Hypo-osmolality and hyponatremia; B96.29 Other Escherichia coli [E. coli] as the cause of diseases classified elsewhere; F41.8 Other specified anxiety disorders; I10 Essential (primary) hypertension; E03.9 Hypothyroidism, unspecified; E78.5 Hyperlipidemia, unspecified; Z88.0 Allergy status to penicillin
CPT/HCPCS: 36415; 80048; 80053; 81003; 82436; 83930; 83935; 84133; 84300; 84439; 84443; 85025; 87086; 87186; 93005; 93010; 99285-25; C9803; J1644; U0003; U0005

== ENCOUNTER 2020-09-04 22:21 | Inpatient (IN) | payer OTHER ==
[2020-09-04] MEDS ORDERED: SODIUM CHLORIDE IV ONE (23:20)
[2020-09-05 00:40] LABS: BASO % 0.4 % (0-2.0); HEMATOCRIT 35.3 % (32.4-45.2); LYMPH % 12.2 % (8-40); MCH 25.8 pg (25.7-33.7); MEAN CELL VOLUME 75.9 fl (80-96); MEAN PLT VOLUME 7.2 fl (7.5-11.1); MONO % 6.4 % (3.8-10.2); PLATELET COUNT 297 10^3/uL (134-434); RBC 4.65 M/mm3 (3.60-5.2); RDW 15.1 % (11.6-15.6); WHITE BLOOD COUNT 8.5 K/mm3 (4.0-10.0)
[2020-09-05 00:47] LABS: INR 1.1 (0.83-1.09); PROTHROMBIN TIME (PATIENT) 13.3 SEC (9.7-13.0)
[2020-09-05 00:58] LABS: CHLORIDE 93 mmol/L (98-107); SODIUM 129 mmol/L (136-145)
[2020-09-05 01:01] LABS: ALBUMIN 3.2 g/dl (3.4-5.0); ANION GAP 12 MMOL/L (8-16); BLOOD UREA NITROGEN 12.4 mg/dL (7-18); CO2 23 mmol/L (21-32)
[2020-09-05 01:04] LABS: SGOT/AST 19 U/L (15-37); SGPT/ALT 26 U/L (13-61)
[2020-09-05 01:06] LABS: BILIRUBIN,TOTAL 0.4 mg/dL (0.2-1)
[2020-09-05 01:07] LABS: ALK PHOS 138 U/L (45-117)
[2020-09-05 01:21] LABS: CALCIUM 9.1 mg/dL (8.5-10.1); GLUCOSE,RANDOM 109 mg/dL (74-106); TOT PROT 7.8 g/dl (6.4-8.2)
[2020-09-05] MEDS ORDERED: ERTAPENEM SODIUM 1 GM in SODIUM CHLORIDE 50 ML IVPB ONE (03:39)
[2020-09-05] MEDS ORDERED: ACETAMINOPHEN 1000 MG/100 ML VIAL (NON FORMULARY) IVPB ONE (03:55)
[2020-09-05] MEDS ORDERED: ERTAPENEM SODIUM 1 GM VIAL ONE (04:04)
[2020-09-05] MEDS ORDERED: ACETAMINOPHEN INJECTION 100 ML IVPB ONE (05:19)
[2020-09-05] MEDS ORDERED: ACETAMINOPHEN 500 MG TABLET (FP) PO PRN (06:46)
[2020-09-05] MEDS ORDERED: LEVOTHYROXINE NA 25 MCG TABLET (FP) ONE (06:52)
[2020-09-05] MEDS: LEVOTHYROXINE NA 100 MCG TABLET (FP) PO SCH (06:59)
[2020-09-05] MEDS ORDERED: ASPIRIN COATED 81 MG TABLET.EC ONE (09:19)
[2020-09-05] MEDS ORDERED: ENOXAPARIN NA (PORCINE) 40 MG/0.4 ML DISP.SYRIN SQ ONE (09:19)
[2020-09-05] MEDS ORDERED: ENALAPRIL MALEATE 5 MG TABLET ONE (09:19)
[2020-09-05] MEDS: ASPIRIN COATED 81 MG TABLET.EC PO SCH (09:31)
[2020-09-05] MEDS: LACTOBACILLUS ACIDOPHILUS 1 TABLET PO SCH (09:31)
[2020-09-05] MEDS: SODIUM CHLORIDE 1 GM TABLET PO SCH ×2 (09:31→21:54)
[2020-09-05] MEDS: ENOXAPARIN NA (PORCINE) 40 MG/0.4 ML DISP.SYRIN SQ SCH (09:32)
[2020-09-05] MEDS: ENALAPRIL MALEATE 10 MG TABLET PO SCH (09:32)
[2020-09-05] MEDS: PANTOPRAZOLE 40 MG TABLET PO SCH (14:12)
[2020-09-05 14:26] VITALS: BMI 25.1
[2020-09-05] MEDS ORDERED: PT OWN MED DRAWER 7, Y5N ONE (20:53)
[2020-09-05] MEDS: ATORVASTATIN CA 10 MG TABLET (FP) PO SCH (21:54)
[2020-09-05 22:52] LABS: URINE APPEARANCE CLEAR; URINE BILIRUBIN NEGATIVE (NEGATIVE); URINE COLOR YELLOW; URINE GLUCOSE (UA) NEGATIVE (NEGATIVE); URINE KETONE NEGATIVE (NEGATIVE); URINE LEUK ESTERASE NEGATIVE (NEGATIVE); URINE NITRITE NEGATIVE (NEGATIVE); URINE PROTEIN NEGATIVE (NEGATIVE)
[2020-09-06] MEDS ORDERED: PT OWN MED DRAWER 7, Y5N ONE ×2 (01:07→10:59)
[2020-09-06] MEDS: ERTAPENEM SODIUM 1 GM in SODIUM CHLORIDE 50 ML IVPB SCH (02:23)
[2020-09-06] MEDS: LEVOTHYROXINE NA 100 MCG TABLET (FP) PO SCH (06:46)
[2020-09-06 09:16] LABS: BASO % 0.7 % (0-2.0); EOS % 2.2 % (0-4.5); HEMATOCRIT 30.7 % (32.4-45.2); HEMOGLOBIN 10.4 GM/dL (10.7-15.3); LYMPH % 30.7 % (8-40); MCH 26.3 pg (25.7-33.7); MEAN CELL VOLUME 77.4 fl (80-96); MEAN PLT VOLUME 7.6 fl (7.5-11.1); NEUT % 60.4 % (42.8-82.8); PLATELET COUNT 256 10^3/uL (134-434); RBC 3.96 M/mm3 (3.60-5.2); RDW 14.8 % (11.6-15.6); WHITE BLOOD COUNT 5.9 K/mm3 (4.0-10.0)
[2020-09-06 09:35] LABS: CALCIUM 8.8 mg/dL (8.5-10.1)
[2020-09-06 09:36] LABS: BLOOD UREA NITROGEN 11.4 mg/dL (7-18)
[2020-09-06 09:39] LABS: CREATININE 0.9 mg/dL (0.55-1.3)
[2020-09-06] MEDS: ENALAPRIL MALEATE 10 MG TABLET PO SCH (11:01)
[2020-09-06] MEDS: PANTOPRAZOLE 40 MG TABLET PO SCH (11:01)
[2020-09-06] MEDS: ENOXAPARIN NA (PORCINE) 40 MG/0.4 ML DISP.SYRIN SQ SCH (11:01)
[2020-09-06] MEDS: LACTOBACILLUS ACIDOPHILUS 1 TABLET PO SCH (11:02)
[2020-09-06] MEDS: SODIUM CHLORIDE 1 GM TABLET PO SCH ×2 (11:02→21:08)
[2020-09-06] MEDS: ASPIRIN COATED 81 MG TABLET.EC PO SCH (11:02)
[2020-09-06] MEDS: ATORVASTATIN CA 10 MG TABLET (FP) PO SCH (21:08)
[2020-09-07] MEDS: ERTAPENEM SODIUM 1 GM in SODIUM CHLORIDE 50 ML IVPB SCH (01:43)
[2020-09-07] MEDS: LEVOTHYROXINE NA 100 MCG TABLET (FP) PO SCH (05:59)
[2020-09-07] MEDS ORDERED: PT OWN MED DRAWER 7, Y5N ONE ×2 (08:41→15:12)
[2020-09-07] MEDS: PANTOPRAZOLE 40 MG TABLET PO SCH (09:23)
[2020-09-07] MEDS: LACTOBACILLUS ACIDOPHILUS 1 TABLET PO SCH (09:23)
[2020-09-07] MEDS: ASPIRIN COATED 81 MG TABLET.EC PO SCH (09:23)
[2020-09-07] MEDS: ENOXAPARIN NA (PORCINE) 40 MG/0.4 ML DISP.SYRIN SQ SCH (09:23)
[2020-09-07] MEDS: ENALAPRIL MALEATE 10 MG TABLET PO SCH (09:23)
[2020-09-07] MEDS: SODIUM CHLORIDE 1 GM TABLET PO SCH ×2 (09:23→21:06)
[2020-09-07 11:32] LABS: CALCIUM 8.9 mg/dL (8.5-10.1)
[2020-09-07 11:33] LABS: ALBUMIN 3.1 g/dl (3.4-5.0); BLOOD UREA NITROGEN 12.1 mg/dL (7-18)
[2020-09-07 11:38] LABS: BILIRUBIN,TOTAL 0.3 mg/dL (0.2-1); TOT PROT 7.6 g/dl (6.4-8.2)
[2020-09-07] MEDS: ATORVASTATIN CA 10 MG TABLET (FP) PO SCH (21:06)
[2020-09-08] MEDS: ERTAPENEM SODIUM 1 GM in SODIUM CHLORIDE 50 ML IVPB SCH (01:01)
[2020-09-08] MEDS: LEVOTHYROXINE NA 100 MCG TABLET (FP) PO SCH (06:16)
[2020-09-08] MEDS ORDERED: PT OWN MED DRAWER 7, Y5N ONE (09:08)
[2020-09-08] MEDS: ENOXAPARIN NA (PORCINE) 40 MG/0.4 ML DISP.SYRIN SQ SCH (09:11)
[2020-09-08] MEDS: ENALAPRIL MALEATE 10 MG TABLET PO SCH (09:11)
[2020-09-08] MEDS: PANTOPRAZOLE 40 MG TABLET PO SCH (09:11)
[2020-09-08] MEDS: SODIUM CHLORIDE 1 GM TABLET PO SCH ×2 (09:11→21:28)
[2020-09-08] MEDS: LACTOBACILLUS ACIDOPHILUS 1 TABLET PO SCH (09:11)
[2020-09-08] MEDS: ASPIRIN COATED 81 MG TABLET.EC PO SCH (09:11)
[2020-09-08] MEDS: ATORVASTATIN CA 10 MG TABLET (FP) PO SCH (21:28)
[2020-09-09] MEDS: ERTAPENEM SODIUM 1 GM in SODIUM CHLORIDE 50 ML IVPB SCH (01:27)
[2020-09-09] MEDS: LEVOTHYROXINE NA 100 MCG TABLET (FP) PO SCH (06:09)
[2020-09-09] MEDS ORDERED: PT OWN MED DRAWER 7, Y5N ONE ×2 (09:03→21:35)
[2020-09-09] MEDS: LACTOBACILLUS ACIDOPHILUS 1 TABLET PO SCH (09:23)
[2020-09-09] MEDS: ENOXAPARIN NA (PORCINE) 40 MG/0.4 ML DISP.SYRIN SQ SCH (09:24)
[2020-09-09] MEDS: ENALAPRIL MALEATE 10 MG TABLET PO SCH (09:24)
[2020-09-09] MEDS: ASPIRIN COATED 81 MG TABLET.EC PO SCH (09:24)
[2020-09-09] MEDS: PANTOPRAZOLE 40 MG TABLET PO SCH (09:24)
[2020-09-09] MEDS: SODIUM CHLORIDE 1 GM TABLET PO SCH ×2 (09:24→22:20)
[2020-09-09] MEDS: ATORVASTATIN CA 10 MG TABLET (FP) PO SCH (22:20)
[2020-09-10] MEDS: LEVOTHYROXINE NA 100 MCG TABLET (FP) PO SCH (06:46)
[2020-09-10] MEDS ORDERED: PT OWN MED DRAWER 7, Y5N ONE (09:13)
[2020-09-10] MEDS: ENALAPRIL MALEATE 10 MG TABLET PO SCH (09:15)
[2020-09-10] MEDS: PANTOPRAZOLE 40 MG TABLET PO SCH (09:15)
[2020-09-10] MEDS: ASPIRIN COATED 81 MG TABLET.EC PO SCH (09:15)
[2020-09-10] MEDS: SODIUM CHLORIDE 1 GM TABLET PO SCH (09:16)
[2020-09-10] MEDS: LACTOBACILLUS ACIDOPHILUS 1 TABLET PO SCH (09:16)
[2020-09-10] MEDS: ENOXAPARIN NA (PORCINE) 40 MG/0.4 ML DISP.SYRIN SQ SCH (09:21)
[2020-09-10 10:01] VITALS: BP 153/75; PULSE 74; TEMP 97.9
== END 2020-09-10 10:52 | disposition home or self-care (01) | DRG 641 ==
LOC: JER 22:21 → JERBED 23:57 → J8W 09-05 13:43
PROVIDERS: ADMIT Internal Medicine; ATTEND Internal Medicine
DX: E87.1 Hypo-osmolality and hyponatremia (principal); N39.0 Urinary tract infection, site not specified; I10 Essential (primary) hypertension; E03.9 Hypothyroidism, unspecified; E88.09 Other disorders of plasma-protein metabolism, not elsewhere classified; F41.9 Anxiety disorder, unspecified; F32.9 Major depressive disorder, single episode, unspecified; K21.9 Gastro-esophageal reflux disease without esophagitis
CPT/HCPCS: 36415; 71045-TC-FY; 76775-TC; 80048; 80053; 81003; 83605; 84484; 85025; 85610; 85730; 87086; 93005; 93010; 99285-25; C9803; J0131; U0003; U0005

== ENCOUNTER 2020-12-12 21:21 | Inpatient (IN) | payer OTHER ==
[2020-12-13] LABS: BASO % 0.3 % (0-2.0); EOS % 0.9 % (0-4.5); HEMATOCRIT 34.2 % (32.4-45.2); HEMOGLOBIN 11.4 GM/dL (10.7-15.3); LYMPH % 30.9 % (8-40); MCH 25.1 pg (25.7-33.7); MCHC 33.3 g/dl (32.0-36.0); MEAN CELL VOLUME 75.3 fl (80-96); MEAN PLT VOLUME 8.2 fl (7.5-11.1); MONO % 4.6 % (3.8-10.2); NEUT % 63.3 % (42.8-82.8); PLATELET COUNT 366 10^3/uL (134-434); RBC 4.55 M/mm3 (3.60-5.2); RDW 15.2 % (11.6-15.6); WHITE BLOOD COUNT 12.5 K/mm3 (4.0-10.0)
[2020-12-13 00:03] LABS: EPI CELLS >36 /uL (0-25.1); HYALINE CASTS 1 /uL (0-3.1); URINE APPEARANCE CLEAR; URINE BACTERIA 333 /uL (0-1359); URINE BILIRUBIN NEGATIVE (NEGATIVE); URINE COLOR YELLOW; URINE GLUCOSE (UA) NEGATIVE (NEGATIVE); URINE KETONE NEGATIVE (NEGATIVE); URINE LEUK ESTERASE 1+ (NEGATIVE); URINE NITRITE NEGATIVE (NEGATIVE); URINE PROTEIN NEGATIVE (NEGATIVE); URINE RBC 2 /uL (0-23.9); URINE UROBILINOGEN 0.2 mg/dL (0.2-1.0); URINE WBC 58 /uL (0-25.8)
[2020-12-13] MEDS ORDERED: ERTAPENEM SODIUM 1 GM in SODIUM CHLORIDE 50 ML IVPB ONE (00:13)
[2020-12-13] MEDS ORDERED: ERTAPENEM SODIUM 1 GM VIAL ONE (00:17)
[2020-12-13 00:21] LABS: CALCIUM 9.6 mg/dL (8.5-10.1)
[2020-12-13 00:23] LABS: ALBUMIN 3.4 g/dl (3.4-5.0); BLOOD UREA NITROGEN 13.5 mg/dL (7-18)
[2020-12-13 00:25] LABS: CREATININE 1.2 mg/dL (0.55-1.3)
[2020-12-13 00:26] LABS: BILIRUBIN,TOTAL 0.4 mg/dL (0.2-1); TOT PROT 8.8 g/dl (6.4-8.2)
[2020-12-13] MEDS ORDERED: POTASSIUM CHLORIDE TABS 20 MEQ TABLET.ER (FP) PO ONE (03:19)
[2020-12-13] MEDS ORDERED: ACETAMINOPHEN 325 MG TABLET (FP) PO PRN (03:30)
[2020-12-13 05:27] VITALS: BMI 24.2
[2020-12-13] MEDS: LEVOTHYROXINE NA 100 MCG TABLET (FP) PO SCH (06:19)
[2020-12-13 08:48] LABS: BASO % 0.5 % (0-2.0); EOS % 1.7 % (0-4.5); HEMATOCRIT 30.4 % (32.4-45.2); HEMOGLOBIN 10.3 GM/dL (10.7-15.3); LYMPH % 32.4 % (8-40); MCH 25.4 pg (25.7-33.7); MCHC 33.8 g/dl (32.0-36.0); MEAN CELL VOLUME 75.2 fl (80-96); MEAN PLT VOLUME 8.4 fl (7.5-11.1); MONO % 6.3 % (3.8-10.2); NEUT % 59.1 % (42.8-82.8); PLATELET COUNT 307 10^3/uL (134-434); RBC 4.05 M/mm3 (3.60-5.2); WHITE BLOOD COUNT 8.7 K/mm3 (4.0-10.0)
[2020-12-13 09:04] LABS: CALCIUM 9.3 mg/dL (8.5-10.1)
[2020-12-13 09:05] LABS: ALBUMIN 2.8 g/dl (3.4-5.0); BLOOD UREA NITROGEN 13.4 mg/dL (7-18)
[2020-12-13] MEDS ORDERED: PT OWN MED DRAWER 7, Y5N ONE (09:08)
[2020-12-13 09:11] LABS: BILIRUBIN,TOTAL 0.3 mg/dL (0.2-1); TOT PROT 7.3 g/dl (6.4-8.2)
[2020-12-13] MEDS: amLODIPine BESYLATE 5 MG TABLET (FP) PO SCH (09:39)
[2020-12-13] MEDS: ASPIRIN COATED 81 MG TABLET.EC PO SCH (09:39)
[2020-12-13] MEDS: metoPROLOL SUCCINATE 25 MG TAB.SR.24H (FP) PO SCH ×2 (09:39→22:10)
[2020-12-13] MEDS ORDERED: POTASSIUM CHLORIDE ORAL LIQUID 20 MEQ/15 ML PO ONE (11:01)
[2020-12-13] MEDS: SODIUM CHLORIDE 1 GM TABLET PO SCH (11:59)
[2020-12-13] MEDS: CHOLECALCIFEROL (VIT D3) 1,000 UNIT (25 MCG) TABLET PO SCH ×2 (17:26→22:10)
[2020-12-13] MEDS: ERTAPENEM SODIUM 1 GM in SODIUM CHLORIDE 50 ML IVPB SCH (18:16)
[2020-12-13] MEDS: ATORVASTATIN CA 10 MG TABLET (FP) PO SCH (22:10)
[2020-12-14] MEDS ORDERED: ERTAPENEM SODIUM 1 GM in SODIUM CHLORIDE 50 ML IVPB SCH (01:00)
[2020-12-14] MEDS: LEVOTHYROXINE NA 100 MCG TABLET (FP) PO SCH (06:45)
[2020-12-14] MEDS: CHOLECALCIFEROL (VIT D3) 1,000 UNIT (25 MCG) TABLET PO SCH ×3 (06:45→21:30)
[2020-12-14] MEDS ORDERED: PT OWN MED DRAWER 7, Y5N ONE (09:28)
[2020-12-14] MEDS: ASPIRIN COATED 81 MG TABLET.EC PO SCH (09:38)
[2020-12-14] MEDS: amLODIPine BESYLATE 5 MG TABLET (FP) PO SCH (09:38)
[2020-12-14] MEDS: ERTAPENEM SODIUM 1 GM in SODIUM CHLORIDE 50 ML IVPB SCH (09:38)
[2020-12-14] MEDS: metoPROLOL SUCCINATE 25 MG TAB.SR.24H (FP) PO SCH ×2 (09:38→21:30)
[2020-12-14] MEDS: SODIUM CHLORIDE 1 GM TABLET PO SCH (09:38)
[2020-12-14] MEDS: ENOXAPARIN NA (PORCINE) 40 MG/0.4 ML DISP.SYRIN SQ SCH ×2 (09:39→09:46)
[2020-12-14] MEDS: ATORVASTATIN CA 10 MG TABLET (FP) PO SCH (21:30)
[2020-12-15] MEDS: CHOLECALCIFEROL (VIT D3) 1,000 UNIT (25 MCG) TABLET PO SCH ×3 (06:20→22:19)
[2020-12-15] MEDS: LEVOTHYROXINE NA 100 MCG TABLET (FP) PO SCH (06:20)
[2020-12-15] MEDS: ENOXAPARIN NA (PORCINE) 40 MG/0.4 ML DISP.SYRIN SQ SCH (09:35)
[2020-12-15] MEDS: amLODIPine BESYLATE 5 MG TABLET (FP) PO SCH (09:35)
[2020-12-15] MEDS: ASPIRIN COATED 81 MG TABLET.EC PO SCH (09:35)
[2020-12-15] MEDS: metoPROLOL SUCCINATE 25 MG TAB.SR.24H (FP) PO SCH ×2 (09:35→22:19)
[2020-12-15] MEDS: SODIUM CHLORIDE 1 GM TABLET PO SCH (09:36)
[2020-12-15] MEDS: ERTAPENEM SODIUM 1 GM in SODIUM CHLORIDE 50 ML IVPB SCH (09:45)
[2020-12-15] MEDS: LACTOBACILLUS ACIDOPHILUS 1 TABLET PO SCH (18:39)
[2020-12-15] MEDS: PANTOPRAZOLE 40 MG TABLET PO SCH (18:39)
[2020-12-15] MEDS: ATORVASTATIN CA 10 MG TABLET (FP) PO SCH (22:19)
[2020-12-16] MEDS: LEVOTHYROXINE NA 100 MCG TABLET (FP) PO SCH (06:30)
[2020-12-16] MEDS: CHOLECALCIFEROL (VIT D3) 1,000 UNIT (25 MCG) TABLET PO SCH ×3 (06:30→21:47)
[2020-12-16] MEDS: metoPROLOL SUCCINATE 25 MG TAB.SR.24H (FP) PO SCH ×2 (09:59→21:47)
[2020-12-16] MEDS: ASPIRIN COATED 81 MG TABLET.EC PO SCH (09:59)
[2020-12-16] MEDS: LACTOBACILLUS ACIDOPHILUS 1 TABLET PO SCH (09:59)
[2020-12-16] MEDS: ERTAPENEM SODIUM 1 GM in SODIUM CHLORIDE 50 ML IVPB SCH (09:59)
[2020-12-16] MEDS: PANTOPRAZOLE 40 MG TABLET PO SCH (09:59)
[2020-12-16] MEDS: amLODIPine BESYLATE 5 MG TABLET (FP) PO SCH (09:59)
[2020-12-16] MEDS: ENOXAPARIN NA (PORCINE) 40 MG/0.4 ML DISP.SYRIN SQ SCH (10:00)
[2020-12-16] MEDS: SODIUM CHLORIDE 1 GM TABLET PO SCH (10:00)
[2020-12-16] MEDS: ATORVASTATIN CA 10 MG TABLET (FP) PO SCH (21:47)
[2020-12-17] MEDS: LEVOTHYROXINE NA 100 MCG TABLET (FP) PO SCH (06:10)
[2020-12-17] MEDS: CHOLECALCIFEROL (VIT D3) 1,000 UNIT (25 MCG) TABLET PO SCH ×3 (06:10→21:24)
[2020-12-17 09:09] LABS: BASO % 0.5 % (0-2.0); EOS % 1.4 % (0-4.5); HEMATOCRIT 32.5 % (32.4-45.2); HEMOGLOBIN 10.8 GM/dL (10.7-15.3); LYMPH % 29.4 % (8-40); MCH 25.4 pg (25.7-33.7); MCHC 33.4 g/dl (32.0-36.0); MEAN CELL VOLUME 76.3 fl (80-96); MEAN PLT VOLUME 8.7 fl (7.5-11.1); MONO % 4.7 % (3.8-10.2); PLATELET COUNT 318 10^3/uL (134-434); RBC 4.26 M/mm3 (3.60-5.2); WHITE BLOOD COUNT 8.9 K/mm3 (4.0-10.0)
[2020-12-17] MEDS ORDERED: PT OWN MED DRAWER 7, Y5N ONE ×2 (09:49→10:28)
[2020-12-17] MEDS: amLODIPine BESYLATE 5 MG TABLET (FP) PO SCH (09:52)
[2020-12-17] MEDS: ASPIRIN COATED 81 MG TABLET.EC PO SCH (09:52)
[2020-12-17] MEDS: metoPROLOL SUCCINATE 25 MG TAB.SR.24H (FP) PO SCH ×2 (09:52→21:24)
[2020-12-17] MEDS: LACTOBACILLUS ACIDOPHILUS 1 TABLET PO SCH (09:52)
[2020-12-17] MEDS: PANTOPRAZOLE 40 MG TABLET PO SCH (09:52)
[2020-12-17] MEDS: SODIUM CHLORIDE 1 GM TABLET PO SCH (09:52)
[2020-12-17 10:17] LABS: ALBUMIN 2.8 g/dl (3.4-5.0); BLOOD UREA NITROGEN 13.9 mg/dL (7-18); CALCIUM 9.4 mg/dL (8.5-10.1)
[2020-12-17 10:20] LABS: CREATININE 0.9 mg/dL (0.55-1.3)
[2020-12-17 10:22] LABS: BILIRUBIN,TOTAL 0.3 mg/dL (0.2-1); TOT PROT 7.6 g/dl (6.4-8.2)
[2020-12-17] MEDS: ERTAPENEM SODIUM 1 GM in SODIUM CHLORIDE 50 ML IVPB SCH (10:42)
[2020-12-17] MEDS: ENOXAPARIN NA (PORCINE) 40 MG/0.4 ML DISP.SYRIN SQ SCH (10:48)
[2020-12-17] MEDS: ATORVASTATIN CA 10 MG TABLET (FP) PO SCH (21:24)
[2020-12-18] MEDS: CHOLECALCIFEROL (VIT D3) 1,000 UNIT (25 MCG) TABLET PO SCH ×2 (06:26→13:37)
[2020-12-18] MEDS: LEVOTHYROXINE NA 100 MCG TABLET (FP) PO SCH (06:26)
[2020-12-18] MEDS ORDERED: PT OWN MED DRAWER 7, Y5N ONE (10:06)
[2020-12-18] MEDS: amLODIPine BESYLATE 5 MG TABLET (FP) PO SCH (10:11)
[2020-12-18] MEDS: PANTOPRAZOLE 40 MG TABLET PO SCH (10:11)
[2020-12-18] MEDS: ASPIRIN COATED 81 MG TABLET.EC PO SCH (10:11)
[2020-12-18] MEDS: metoPROLOL SUCCINATE 25 MG TAB.SR.24H (FP) PO SCH (10:11)
[2020-12-18] MEDS: SODIUM CHLORIDE 1 GM TABLET PO SCH (10:12)
[2020-12-18] MEDS: LACTOBACILLUS ACIDOPHILUS 1 TABLET PO SCH (10:12)
[2020-12-18] MEDS: ERTAPENEM SODIUM 1 GM in SODIUM CHLORIDE 50 ML IVPB SCH (10:12)
[2020-12-18] MEDS: ENOXAPARIN NA (PORCINE) 40 MG/0.4 ML DISP.SYRIN SQ SCH (10:17)
[2020-12-18 10:48] VITALS: BP 135/59; PULSE 64; TEMP 98.2
== END 2020-12-18 14:11 | disposition home or self-care (01) | DRG 690 ==
LOC: JER 21:21 → JERBED 12-13 01:58 → J8W 12-13 05:03
PROVIDERS: ADMIT Internal Medicine; ATTEND Internal Medicine
DX: N39.0 Urinary tract infection, site not specified (principal); E87.1 Hypo-osmolality and hyponatremia; Z16.12 Extended spectrum beta lactamase (ESBL) resistance; E03.9 Hypothyroidism, unspecified; I10 Essential (primary) hypertension; E87.6 Hypokalemia; F41.8 Other specified anxiety disorders; D72.829 Elevated white blood cell count, unspecified; Z88.0 Allergy status to penicillin
CPT/HCPCS: 36415; 80053; 81003; 85025; 87040; 87086; 87186; 93005; 93010; 99285-25; C9803; U0003; U0005

== ENCOUNTER 2021-03-10 20:01 | Inpatient (IN) | payer OTHER ==
[2021-03-10] MEDS ORDERED: ACETAMINOPHEN 1000 MG/100 ML BAG IVPB ONE (21:56)
[2021-03-10 22:38] LABS: HEMATOCRIT 30.9 % (32.4-45.2); HEMOGLOBIN 9.7 GM/dL (10.7-15.3); MCH 22.7 pg (25.7-33.7); MCHC 31.4 g/dl (32.0-36.0); MEAN CELL VOLUME 72.3 fl (80-96); MEAN PLT VOLUME 8.6 fl (7.5-11.1); PLATELET COUNT 272 10^3/uL (134-434); RBC 4.27 M/mm3 (3.60-5.2); RDW 15.9 % (11.6-15.6); WHITE BLOOD COUNT 20.8 K/mm3 (4.0-10.0)
[2021-03-10 22:49] LABS: INR 1.21 (0.83-1.09); PROTHROMBIN TIME (PATIENT) 13.9 SEC (9.7-13.0)
[2021-03-10] MEDS ORDERED: ACETAMINOPHEN INJECTION 100 ML IVPB ONE (22:49)
[2021-03-10] MEDS ORDERED: LACTATED RINGERS SOLUTION 1,000 ML/1,000 ML INFUS.BAG IV SCH (23:00)
[2021-03-10 23:03] LABS: ALBUMIN 3.2 g/dl (3.4-5.0); BLOOD UREA NITROGEN 21.8 mg/dL (7-18)
[2021-03-10 23:06] LABS: CREATININE 1.4 mg/dL (0.55-1.3)
[2021-03-10 23:08] LABS: BILIRUBIN,TOTAL 0.4 mg/dL (0.2-1); TOT PROT 7.6 g/dl (6.4-8.2)
[2021-03-10 23:20] LABS: ANISOCYTOSIS 1+; MACROCYTOSIS 0; PLATELET ESTIMATE NORMAL
[2021-03-11 00:32] LABS: EPI CELLS 4 /uL (0-25.1); HYALINE CASTS 3 /uL (0-3.1); PH,URINE 5.5 (5.0-8.0); URINE APPEARANCE CLOUDY; URINE BACTERIA >9,000 /uL (0-1359); URINE BILIRUBIN NEGATIVE (NEGATIVE); URINE COLOR YELLOW; URINE GLUCOSE (UA) NEGATIVE (NEGATIVE); URINE KETONE NEGATIVE (NEGATIVE); URINE LEUK ESTERASE 3+ (NEGATIVE); URINE NITRITE POSITIVE (NEGATIVE); URINE PROTEIN TRACE (NEGATIVE); URINE RBC 13 /uL (0-23.9); URINE UROBILINOGEN 0.2 mg/dL (0.2-1.0); URINE WBC 942 /uL (0-25.8)
[2021-03-11] MEDS ORDERED: ERTAPENEM SODIUM 1 GM in SODIUM CHLORIDE 50 ML IVPB ONE (00:36)
[2021-03-11] MEDS ORDERED: ERTAPENEM SODIUM 1 GM VIAL ONE (01:14)
[2021-03-11 04:12] VITALS: BMI 25.1
[2021-03-11] MEDS ORDERED: ACETAMINOPHEN 1000 MG/100 ML BAG IVPB PRN (04:22)
[2021-03-11] MEDS ORDERED: SODIUM CHLORIDE 500 ML IV STA (04:24)
[2021-03-11] MEDS: LEVOTHYROXINE NA 100 MCG TABLET (FP) PO SCH (06:34)
[2021-03-11 08:56] LABS: BASO % 0.1 % (0-2.0); HEMATOCRIT 28.5 % (32.4-45.2); HEMOGLOBIN 8.9 GM/dL (10.7-15.3); LYMPH % 6.5 % (8-40); MCHC 31.4 g/dl (32.0-36.0); MEAN CELL VOLUME 73.1 fl (80-96); MEAN PLT VOLUME 8.9 fl (7.5-11.1); MONO % 3.6 % (3.8-10.2); NEUT % 89.8 % (42.8-82.8); PLATELET COUNT 196 10^3/uL (134-434); RBC 3.89 M/mm3 (3.60-5.2); RDW 15.8 % (11.6-15.6); WHITE BLOOD COUNT 18.7 K/mm3 (4.0-10.0)
[2021-03-11] MEDS: SODIUM CHLORIDE 1,000 ML IV SCH (09:06)
[2021-03-11 09:32] LABS: ALBUMIN 2.7 g/dl (3.4-5.0); BILIRUBIN,TOTAL 0.7 mg/dL (0.2-1); TOT PROT 6.4 g/dl (6.4-8.2)
[2021-03-11 09:33] LABS: CREATININE 1.1 mg/dL (0.55-1.3)
[2021-03-11 09:35] LABS: CALCIUM 8.6 mg/dL (8.5-10.1)
[2021-03-11 09:36] LABS: BLOOD UREA NITROGEN 17.6 mg/dL (7-18)
[2021-03-11] MEDS ORDERED: ONDANSETRON 4 MG/2 ML VIAL IVPUSH PRN (11:11)
[2021-03-11] MEDS ORDERED: POTASSIUM CHLORIDE ORAL LIQUID 20 MEQ/15 ML PO ONE (11:25)
[2021-03-11] MEDS ORDERED: MEROPENEM 1 GM in DEXTROSE 5%-WATER 100 ML IVPB SCH (13:00)
[2021-03-11] MEDS ORDERED: MEROPENEM 1 GM VIAL (RESTRICTED TO ID) IVPB ONE (13:30)
[2021-03-11] MEDS ORDERED: DEXTROSE 5%-WATER 100 ML IVPB ONE (13:30)
[2021-03-11] MEDS: MEROPENEM 1 GM in DEXTROSE 5%-WATER 100 ML IVPB SCH (14:49)
[2021-03-11] MEDS: ATORVASTATIN CA 10 MG TABLET (FP) PO SCH (21:05)
[2021-03-12] MEDS ORDERED: MEROPENEM 1 GM VIAL (RESTRICTED TO ID) IVPB ONE ×2 (01:04→10:27)
[2021-03-12] MEDS ORDERED: DEXTROSE 5%-WATER 100 ML IVPB ONE ×2 (01:04→10:27)
[2021-03-12] MEDS: SODIUM CHLORIDE 1,000 ML IV SCH ×3 (01:23→15:13)
[2021-03-12] MEDS: MEROPENEM 1 GM in DEXTROSE 5%-WATER 100 ML IVPB SCH ×2 (01:23→12:36)
[2021-03-12] MEDS: ACETAMINOPHEN 325 MG TABLET (FP) PO PRN ×2 (06:17→17:14)
[2021-03-12] MEDS: LEVOTHYROXINE NA 100 MCG TABLET (FP) PO SCH (06:17)
[2021-03-12 07:54] LABS: BASO % 0.2 % (0-2.0); EOS % 0.1 % (0-4.5); HEMATOCRIT 29.6 % (32.4-45.2); HEMOGLOBIN 9.6 GM/dL (10.7-15.3); LYMPH % 9.1 % (8-40); MCH 23.5 pg (25.7-33.7); MCHC 32.2 g/dl (32.0-36.0); MEAN PLT VOLUME 8.9 fl (7.5-11.1); MONO % 4.3 % (3.8-10.2); NEUT % 86.3 % (42.8-82.8); PLATELET COUNT 206 10^3/uL (134-434); RBC 4.06 M/mm3 (3.60-5.2); RDW 16.2 % (11.6-15.6); WHITE BLOOD COUNT 14.3 K/mm3 (4.0-10.0)
[2021-03-12 08:28] LABS: BLOOD UREA NITROGEN 11.4 mg/dL (7-18)
[2021-03-12 08:29] LABS: ALBUMIN 2.7 g/dl (3.4-5.0)
[2021-03-12 08:31] LABS: CALCIUM 9.1 mg/dL (8.5-10.1); CREATININE 1.1 mg/dL (0.55-1.3)
[2021-03-12 08:32] LABS: BILIRUBIN,TOTAL 0.6 mg/dL (0.2-1)
[2021-03-12 08:33] LABS: TOT PROT 6.9 g/dl (6.4-8.2)
[2021-03-12] MEDS ORDERED: ERTAPENEM SODIUM 1 GM in SODIUM CHLORIDE 50 ML IVPB SCH (10:00)
[2021-03-12] MEDS: ATORVASTATIN CA 10 MG TABLET (FP) PO SCH (21:00)
[2021-03-12] MEDS ORDERED: LACTOBACILLUS ACIDOPHILUS 1 TABLET PO ONE (21:10)
[2021-03-13] MEDS ORDERED: MEROPENEM 1 GM VIAL (RESTRICTED TO ID) IVPB ONE ×2 (04:12→13:14)
[2021-03-13] MEDS ORDERED: DEXTROSE 5%-WATER 100 ML IVPB ONE ×2 (04:13→13:15)
[2021-03-13] MEDS: MEROPENEM 1 GM in DEXTROSE 5%-WATER 100 ML IVPB SCH ×2 (04:14→13:37)
[2021-03-13] MEDS: SODIUM CHLORIDE 1,000 ML IV SCH ×2 (06:01→21:35)
[2021-03-13] MEDS: LEVOTHYROXINE NA 100 MCG TABLET (FP) PO SCH (06:01)
[2021-03-13 08:42] LABS: BASO % 0.3 % (0-2.0); EOS % 0.8 % (0-4.5); HEMATOCRIT 31.2 % (32.4-45.2); HEMOGLOBIN 9.9 GM/dL (10.7-15.3); LYMPH % 24.9 % (8-40); MCH 23.3 pg (25.7-33.7); MCHC 31.8 g/dl (32.0-36.0); MEAN CELL VOLUME 73.3 fl (80-96); MEAN PLT VOLUME 9.2 fl (7.5-11.1); MONO % 6.6 % (3.8-10.2); NEUT % 67.4 % (42.8-82.8); PLATELET COUNT 246 10^3/uL (134-434); RBC 4.25 M/mm3 (3.60-5.2); RDW 16.3 % (11.6-15.6); WHITE BLOOD COUNT 11.9 K/mm3 (4.0-10.0)
[2021-03-13 08:58] LABS: ALBUMIN 2.9 g/dl (3.4-5.0); CALCIUM 9.2 mg/dL (8.5-10.1)
[2021-03-13 08:59] LABS: BLOOD UREA NITROGEN 10.4 mg/dL (7-18)
[2021-03-13 09:03] LABS: TOT PROT 7.3 g/dl (6.4-8.2)
[2021-03-13 09:04] LABS: BILIRUBIN,TOTAL 0.5 mg/dL (0.2-1)
[2021-03-13] MEDS: LACTOBACILLUS ACIDOPHILUS 1 TABLET PO SCH (10:48)
[2021-03-13] MEDS: ENOXAPARIN NA (PORCINE) 40 MG/0.4 ML DISP.SYRIN SQ SCH (13:38)
[2021-03-13] MEDS: ATORVASTATIN CA 10 MG TABLET (FP) PO SCH (21:37)
[2021-03-14] MEDS ORDERED: MEROPENEM 1 GM VIAL (RESTRICTED TO ID) IVPB ONE ×2 (00:57→13:12)
[2021-03-14] MEDS ORDERED: DEXTROSE 5%-WATER 100 ML IVPB ONE ×2 (00:58→13:12)
[2021-03-14] MEDS: MEROPENEM 1 GM in DEXTROSE 5%-WATER 100 ML IVPB SCH ×2 (01:09→13:30)
[2021-03-14] MEDS: LEVOTHYROXINE NA 100 MCG TABLET (FP) PO SCH (06:20)
[2021-03-14 09:06] LABS: BASO % 0.5 % (0-2.0); EOS % 1.2 % (0-4.5); HEMATOCRIT 28.7 % (32.4-45.2); HEMOGLOBIN 9.1 GM/dL (10.7-15.3); LYMPH % 27.2 % (8-40); MCH 23.4 pg (25.7-33.7); MCHC 31.6 g/dl (32.0-36.0); MEAN PLT VOLUME 8.8 fl (7.5-11.1); MONO % 8.7 % (3.8-10.2); NEUT % 62.4 % (42.8-82.8); PLATELET COUNT 252 10^3/uL (134-434); RBC 3.88 M/mm3 (3.60-5.2); RDW 16.4 % (11.6-15.6); WHITE BLOOD COUNT 8.4 K/mm3 (4.0-10.0)
[2021-03-14] MEDS: LACTOBACILLUS ACIDOPHILUS 1 TABLET PO SCH (09:18)
[2021-03-14] MEDS: ENOXAPARIN NA (PORCINE) 40 MG/0.4 ML DISP.SYRIN SQ SCH (09:18)
[2021-03-14 09:30] LABS: CALCIUM 8.7 mg/dL (8.5-10.1)
[2021-03-14 09:31] LABS: ALBUMIN 2.6 g/dl (3.4-5.0)
[2021-03-14 09:35] LABS: TOT PROT 6.8 g/dl (6.4-8.2)
[2021-03-14 09:36] LABS: BILIRUBIN,TOTAL 0.4 mg/dL (0.2-1)
[2021-03-14] MEDS: SODIUM CHLORIDE 1,000 ML IV SCH (17:58)
[2021-03-14] MEDS: ATORVASTATIN CA 10 MG TABLET (FP) PO SCH (21:44)
[2021-03-15] MEDS ORDERED: MEROPENEM 1 GM VIAL (RESTRICTED TO ID) IVPB ONE ×3 (01:09→23:42)
[2021-03-15] MEDS ORDERED: DEXTROSE 5%-WATER 100 ML IVPB ONE ×3 (01:10→23:42)
[2021-03-15] MEDS: MEROPENEM 1 GM in DEXTROSE 5%-WATER 100 ML IVPB SCH ×2 (01:17→13:35)
[2021-03-15] MEDS: LEVOTHYROXINE NA 100 MCG TABLET (FP) PO SCH (06:03)
[2021-03-15] MEDS: SODIUM CHLORIDE 1,000 ML IV SCH ×2 (08:00→22:10)
[2021-03-15] MEDS: LACTOBACILLUS ACIDOPHILUS 1 TABLET PO SCH (10:08)
[2021-03-15] MEDS: ENOXAPARIN NA (PORCINE) 40 MG/0.4 ML DISP.SYRIN SQ SCH (10:08)
[2021-03-15] MEDS: ATORVASTATIN CA 10 MG TABLET (FP) PO SCH (22:10)
[2021-03-16] MEDS: MEROPENEM 1 GM in DEXTROSE 5%-WATER 100 ML IVPB SCH (00:13)
[2021-03-16] MEDS: LEVOTHYROXINE NA 100 MCG TABLET (FP) PO SCH (06:24)
[2021-03-16 08:42] LABS: BASO % 0.8 % (0-2.0); EOS % 2.2 % (0-4.5); HEMATOCRIT 31.2 % (32.4-45.2); HEMOGLOBIN 10.3 GM/dL (10.7-15.3); LYMPH % 31.2 % (8-40); MCH 23.9 pg (25.7-33.7); MCHC 32.9 g/dl (32.0-36.0); MEAN CELL VOLUME 72.5 fl (80-96); MEAN PLT VOLUME 8.4 fl (7.5-11.1); NEUT % 58.8 % (42.8-82.8); PLATELET COUNT 305 10^3/uL (134-434); RDW 16.3 % (11.6-15.6); WHITE BLOOD COUNT 8.4 K/mm3 (4.0-10.0)
[2021-03-16 09:01] LABS: ALBUMIN 2.8 g/dl (3.4-5.0); BLOOD UREA NITROGEN 10.4 mg/dL (7-18); CREATININE 0.9 mg/dL (0.55-1.3)
[2021-03-16 09:02] LABS: TOT PROT 7.4 g/dl (6.4-8.2)
[2021-03-16 09:03] LABS: BILIRUBIN,TOTAL 0.4 mg/dL (0.2-1)
[2021-03-16] MEDS ORDERED: SODIUM CHLORIDE 50 ML IVPB ONE (10:08)
[2021-03-16] MEDS ORDERED: ERTAPENEM SODIUM 1 GM VIAL ONE (10:08)
[2021-03-16] MEDS: SODIUM CHLORIDE 1,000 ML IV SCH ×2 (10:23→10:43)
[2021-03-16] MEDS: LACTOBACILLUS ACIDOPHILUS 1 TABLET PO SCH (10:24)
[2021-03-16] MEDS: ERTAPENEM SODIUM 1 GM in SODIUM CHLORIDE 50 ML IVPB SCH (10:24)
[2021-03-16] MEDS: ENOXAPARIN NA (PORCINE) 40 MG/0.4 ML DISP.SYRIN SQ SCH ×2 (10:24→11:53)
[2021-03-16] MEDS: ATORVASTATIN CA 10 MG TABLET (FP) PO SCH (21:35)
[2021-03-17] MEDS: LEVOTHYROXINE NA 100 MCG TABLET (FP) PO SCH (06:15)
[2021-03-17] MEDS ORDERED: SODIUM CHLORIDE 50 ML IVPB ONE (08:50)
[2021-03-17] MEDS ORDERED: ERTAPENEM SODIUM 1 GM VIAL ONE (08:50)
[2021-03-17] MEDS: SODIUM CHLORIDE 1,000 ML IV SCH (09:00)
[2021-03-17] MEDS: LACTOBACILLUS ACIDOPHILUS 1 TABLET PO SCH (09:01)
[2021-03-17] MEDS: ERTAPENEM SODIUM 1 GM in SODIUM CHLORIDE 50 ML IVPB SCH (09:01)
[2021-03-17] MEDS: ENOXAPARIN NA (PORCINE) 40 MG/0.4 ML DISP.SYRIN SQ SCH (09:01)
[2021-03-17 14:14] VITALS: BP 153/72; PULSE 71; TEMP 97.6
== END 2021-03-17 18:22 | disposition home or self-care (01) | DRG 872 ==
LOC: JER 20:01 → JERBED 03-11 00:37 → J7W 03-11 03:26
PROVIDERS: ADMIT Internal Medicine; ATTEND Internal Medicine
PROC: 05HB33Z Insertion of Infusion Device into Right Basilic Vein, Percutaneous Approach (ICD-10-PCS; principal; 2021-03-17)
PROC: B51MZZA Fluoroscopy of Right Upper Extremity Veins, Guidance (ICD-10-PCS; 2021-03-17)
DX: A41.51 Sepsis due to Escherichia coli [E. coli] (principal); N17.9 Acute kidney failure, unspecified; E87.1 Hypo-osmolality and hyponatremia; N39.0 Urinary tract infection, site not specified; N13.6 Pyonephrosis; Z16.12 Extended spectrum beta lactamase (ESBL) resistance; K21.9 Gastro-esophageal reflux disease without esophagitis; F41.8 Other specified anxiety disorders; I10 Essential (primary) hypertension; E03.9 Hypothyroidism, unspecified; Z88.0 Allergy status to penicillin; R19.7 Diarrhea, unspecified; D72.829 Elevated white blood cell count, unspecified
CPT/HCPCS: 36415; 36569; 51600; 71046-TC-FY; 76775-TC; 76856-TC; 80053; 81003; 82550; 82553; 83605; 83690; 84484; 85025; 85610; 87040; 87045; 87046; 87086; 87177; 87186; 87209; 87324; 87449; 87804; 93005; 93010; 99285-25; C9803; J0131; U0003; U0005

== ENCOUNTER 2021-07-25 16:31 | Inpatient (IN) | payer OTHER ==
[2021-07-25 18:11] LABS: EPI CELLS 16 /uL (0-25.1); HYALINE CASTS 0 /uL (0-3.1); PH,URINE 6.5 (5.0-8.0); URINE APPEARANCE CLOUDY; URINE BACTERIA >9,000 /uL (0-1359); URINE BILIRUBIN NEGATIVE (NEGATIVE); URINE COLOR YELLOW; URINE GLUCOSE (UA) NEGATIVE (NEGATIVE); URINE KETONE NEGATIVE (NEGATIVE); URINE LEUK ESTERASE 3+ (NEGATIVE); URINE NITRITE NEGATIVE (NEGATIVE); URINE PROTEIN TRACE (NEGATIVE); URINE RBC 52 /uL (0-23.9); URINE UROBILINOGEN 0.2 mg/dL (0.2-1.0); URINE WBC 2347 /uL (0-25.8)
[2021-07-25] MEDS ORDERED: ERTAPENEM SODIUM 1 GM in SODIUM CHLORIDE 50 ML IVPB ONE (18:31)
[2021-07-25] MEDS ORDERED: ACETAMINOPHEN 500 MG TABLET (FP) PO ONE (18:36)
[2021-07-25] MEDS ORDERED: ACETAMINOPHEN 500 MG TABLET (FP) ONE (19:23)
[2021-07-25 19:26] LABS: BASO % 0.6 % (0-2.0); HEMATOCRIT 32.5 % (32.4-45.2); HEMOGLOBIN 10.7 GM/dL (10.7-15.3); LYMPH % 15.5 % (8-40); MCH 24.2 pg (25.7-33.7); MEAN CELL VOLUME 73.3 fl (80-96); MEAN PLT VOLUME 8.1 fl (7.5-11.1); MONO % 6.9 % (3.8-10.2); PLATELET COUNT 297 10^3/uL (134-434); RBC 4.43 M/mm3 (3.60-5.2); RDW 15.6 % (11.6-15.6); WHITE BLOOD COUNT 14.6 K/mm3 (4.0-10.0)
[2021-07-25 19:48] LABS: ALBUMIN 3.5 g/dl (3.4-5.0); CALCIUM 9.3 mg/dL (8.5-10.1)
[2021-07-25 19:49] LABS: BLOOD UREA NITROGEN 15.2 mg/dL (7-18)
[2021-07-25 19:51] LABS: CREATININE 1.2 mg/dL (0.55-1.3)
[2021-07-25 19:53] LABS: BILIRUBIN,TOTAL 0.4 mg/dL (0.2-1); TOT PROT 8.3 g/dl (6.4-8.2)
[2021-07-25] MEDS ORDERED: POTASSIUM CHLORIDE ORAL LIQUID 20 MEQ/15 ML PO ONE (20:56)
[2021-07-25] MEDS ORDERED: POTASSIUM CHLORIDE ORAL LIQUID 20 MEQ/15 ML ONE (21:17)
[2021-07-26] MEDS ORDERED: ATORVASTATIN CA 10 MG TABLET (FP) ONE ×2 (00:40)
[2021-07-26] MEDS ORDERED: metoPROLOL SUCCINATE 25 MG TAB.SR.24H (FP) PO ONE (00:40)
[2021-07-26] MEDS: metoPROLOL SUCCINATE 25 MG TAB.SR.24H (FP) PO SCH ×3 (00:48→21:53)
[2021-07-26] MEDS: ATORVASTATIN CA 10 MG TABLET (FP) PO SCH ×2 (00:48→21:54)
[2021-07-26] MEDS: ACETAMINOPHEN 500 MG TABLET (FP) PO PRN ×2 (02:44→14:56)
[2021-07-26 03:17] VITALS: BMI 26.0
[2021-07-26] MEDS: LEVOTHYROXINE NA 100 MCG TABLET (FP) PO SCH (06:41)
[2021-07-26] MEDS ORDERED: MEROPENEM 1 GM in DEXTROSE 5%-WATER 100 ML IVPB SCH (09:00)
[2021-07-26] MEDS: ASPIRIN COATED 81 MG TABLET.EC PO SCH (09:38)
[2021-07-26 10:01] LABS: BASO % 0.2 % (0-2.0); HEMATOCRIT 31.7 % (32.4-45.2); HEMOGLOBIN 10.4 GM/dL (10.7-15.3); LYMPH % 11.4 % (8-40); MCHC 32.7 g/dl (32.0-36.0); MEAN CELL VOLUME 73.5 fl (80-96); MEAN PLT VOLUME 8.2 fl (7.5-11.1); MONO % 4.1 % (3.8-10.2); NEUT % 84.3 % (42.8-82.8); PLATELET COUNT 271 10^3/uL (134-434); RBC 4.31 M/mm3 (3.60-5.2); RDW 15.8 % (11.6-15.6); WHITE BLOOD COUNT 17.9 K/mm3 (4.0-10.0)
[2021-07-26] MEDS: ENALAPRIL MALEATE 10 MG TABLET PO SCH (10:26)
[2021-07-26 10:27] LABS: BLOOD UREA NITROGEN 13.9 mg/dL (7-18); CALCIUM 8.9 mg/dL (8.5-10.1); MAGNESIUM 2.1 mg/dL (1.8-2.4)
[2021-07-26 10:30] LABS: CREATININE 1.2 mg/dL (0.55-1.3)
[2021-07-26 10:32] LABS: BILIRUBIN,TOTAL 0.9 mg/dL (0.2-1); TOT PROT 7.8 g/dl (6.4-8.2)
[2021-07-26] MEDS ORDERED: POTASSIUM CHLORIDE ORAL LIQUID 20 MEQ/15 ML PO ONE (11:47)
[2021-07-26] MEDS: HEPARIN NA (PORCINE) 5,000 UNITS/ML 1ML VIAL SQ SCH ×2 (14:56→21:54)
[2021-07-26] MEDS: ERTAPENEM SODIUM 1 GM in SODIUM CHLORIDE 50 ML IVPB SCH (14:56)
[2021-07-27] MEDS: ACETAMINOPHEN 500 MG TABLET (FP) PO PRN (02:25)
[2021-07-27] MEDS: LEVOTHYROXINE NA 100 MCG TABLET (FP) PO SCH (06:13)
[2021-07-27 09:47] LABS: BASO % 0.4 % (0-2.0); EOS % 0.4 % (0-4.5); HEMATOCRIT 31.2 % (32.4-45.2); HEMOGLOBIN 10.5 GM/dL (10.7-15.3); LYMPH % 22.5 % (8-40); MCH 24.6 pg (25.7-33.7); MCHC 33.5 g/dl (32.0-36.0); MEAN CELL VOLUME 73.4 fl (80-96); MEAN PLT VOLUME 8.4 fl (7.5-11.1); MONO % 7.1 % (3.8-10.2); NEUT % 69.6 % (42.8-82.8); PLATELET COUNT 233 10^3/uL (134-434); RBC 4.25 M/mm3 (3.60-5.2); RDW 15.7 % (11.6-15.6); WHITE BLOOD COUNT 10.6 K/mm3 (4.0-10.0)
[2021-07-27 10:21] LABS: ALBUMIN 2.9 g/dl (3.4-5.0); BLOOD UREA NITROGEN 15.3 mg/dL (7-18)
[2021-07-27 10:24] LABS: CREATININE 1.2 mg/dL (0.55-1.3)
[2021-07-27 10:25] LABS: TOT PROT 7.2 g/dl (6.4-8.2)
[2021-07-27 10:26] LABS: BILIRUBIN,TOTAL 0.6 mg/dL (0.2-1)
[2021-07-27] MEDS: ERTAPENEM SODIUM 1 GM in SODIUM CHLORIDE 50 ML IVPB SCH (11:40)
[2021-07-27] MEDS: ASPIRIN COATED 81 MG TABLET.EC PO SCH (11:41)
[2021-07-27] MEDS: ENALAPRIL MALEATE 10 MG TABLET PO SCH (11:41)
[2021-07-27] MEDS: metoPROLOL SUCCINATE 25 MG TAB.SR.24H (FP) PO SCH ×2 (11:41→23:41)
[2021-07-27] MEDS: HEPARIN NA (PORCINE) 5,000 UNITS/ML 1ML VIAL SQ SCH ×3 (11:42→23:43)
[2021-07-27] MEDS: ATORVASTATIN CA 10 MG TABLET (FP) PO SCH (23:41)
[2021-07-28] MEDS: LEVOTHYROXINE NA 100 MCG TABLET (FP) PO SCH (06:00)
[2021-07-28] MEDS: ASPIRIN COATED 81 MG TABLET.EC PO SCH (10:29)
[2021-07-28] MEDS: ERTAPENEM SODIUM 1 GM in SODIUM CHLORIDE 50 ML IVPB SCH (10:30)
[2021-07-28] MEDS: metoPROLOL SUCCINATE 25 MG TAB.SR.24H (FP) PO SCH ×2 (10:30→22:33)
[2021-07-28] MEDS: HEPARIN NA (PORCINE) 5,000 UNITS/ML 1ML VIAL SQ SCH ×2 (10:31→22:37)
[2021-07-28] MEDS: ENALAPRIL MALEATE 10 MG TABLET PO SCH (11:25)
[2021-07-28 15:40] LABS: CALCIUM 9.1 mg/dL (8.5-10.1)
[2021-07-28 15:41] LABS: BLOOD UREA NITROGEN 16.2 mg/dL (7-18)
[2021-07-28 15:44] LABS: CREATININE 1.1 mg/dL (0.55-1.3)
[2021-07-28] MEDS: LACTOBACILLUS ACIDOPHILUS 1 TABLET PO SCH (16:59)
[2021-07-28] MEDS: ATORVASTATIN CA 10 MG TABLET (FP) PO SCH (22:33)
[2021-07-29] MEDS: LEVOTHYROXINE NA 100 MCG TABLET (FP) PO SCH (06:30)
[2021-07-29] MEDS: ENALAPRIL MALEATE 10 MG TABLET PO SCH (12:32)
[2021-07-29] MEDS: metoPROLOL SUCCINATE 25 MG TAB.SR.24H (FP) PO SCH (12:32)
[2021-07-29] MEDS: ASPIRIN COATED 81 MG TABLET.EC PO SCH (12:32)
[2021-07-29] MEDS: LACTOBACILLUS ACIDOPHILUS 1 TABLET PO SCH (12:32)
[2021-07-29] MEDS: ERTAPENEM SODIUM 1 GM in SODIUM CHLORIDE 50 ML IVPB SCH (12:33)
[2021-07-29] MEDS: HEPARIN NA (PORCINE) 5,000 UNITS/ML 1ML VIAL SQ SCH (12:46)
[2021-07-29 12:48] VITALS: BP 139/57; PULSE 56; TEMP 98.1
== END 2021-07-29 15:18 | disposition home or self-care (01) | DRG 690 ==
LOC: JER 16:31 → JERBED 21:18 → J5S 07-26 02:19
PROVIDERS: ADMIT Internal Medicine; ATTEND Internal Medicine
PROC: 02HV33Z Insertion of Infusion Device into Superior Vena Cava, Percutaneous Approach (ICD-10-PCS; principal; 2021-07-29)
PROC: B518ZZA Fluoroscopy of Superior Vena Cava, Guidance (ICD-10-PCS; 2021-07-29)
DX: N39.0 Urinary tract infection, site not specified (principal); I10 Essential (primary) hypertension; E03.9 Hypothyroidism, unspecified; B96.20 Unspecified Escherichia coli [E. coli] as the cause of diseases classified elsewhere; F41.9 Anxiety disorder, unspecified; K21.9 Gastro-esophageal reflux disease without esophagitis; E87.6 Hypokalemia; Z86.19 Personal history of other infectious and parasitic diseases
CPT/HCPCS: 0241U-QW; 36415; 36569; 71046-TC-FY; 74176-TC; 80048; 80053; 81003; 83735; 85025; 85651; 86140; 87040; 87086; 87186; 93005; 93010; 99285-25; J1644

== ENCOUNTER 2021-10-09 13:09 | Inpatient (IN) | payer OTHER ==
[2021-10-09 13:16] VITALS: RESP 18
[2021-10-09] MEDS ORDERED: SODIUM CHLORIDE 0.9% 500 ML INFUS.BAG IV ONE (14:17)
[2021-10-09 15:34] LABS: EPI CELLS 2 /uL (0-25.1); HYALINE CASTS 0 /uL (0-3.1); URINE APPEARANCE CLEAR; URINE BACTERIA 4037 /uL (0-1359); URINE BILIRUBIN NEGATIVE (NEGATIVE); URINE COLOR YELLOW; URINE GLUCOSE (UA) NEGATIVE (NEGATIVE); URINE KETONE NEGATIVE (NEGATIVE); URINE LEUK ESTERASE 3+ (NEGATIVE); URINE NITRITE NEGATIVE (NEGATIVE); URINE PROTEIN NEGATIVE (NEGATIVE); URINE RBC 2 /uL (0-23.9); URINE UROBILINOGEN 0.2 mg/dL (0.2-1.0); URINE WBC 397 /uL (0-25.8)
[2021-10-09 15:36] LABS: BASO % 0.7 % (0-2.0); EOS % 0.4 % (0-4.5); HEMATOCRIT 33.7 % (32.4-45.2); HEMOGLOBIN 11.3 GM/dL (10.7-15.3); MCHC 33.6 g/dl (32.0-36.0); MEAN CELL VOLUME 74.5 fl (80-96); MEAN PLT VOLUME 8.1 fl (7.5-11.1); MONO % 5.1 % (3.8-10.2); NEUT % 72.8 % (42.8-82.8); PLATELET COUNT 321 10^3/uL (134-434); RBC 4.53 M/mm3 (3.60-5.2); RDW 16.5 % (11.6-15.6); WHITE BLOOD COUNT 10.9 K/mm3 (4.0-10.0)
[2021-10-09 15:57] LABS: ALBUMIN 3.7 g/dl (3.4-5.0); BLOOD UREA NITROGEN 16.2 mg/dL (7-18); CALCIUM 9.8 mg/dL (8.5-10.1)
[2021-10-09 16:00] LABS: CREATININE 1.2 mg/dL (0.55-1.3)
[2021-10-09 16:02] LABS: BILIRUBIN,TOTAL 0.4 mg/dL (0.2-1); TOT PROT 8.6 g/dl (6.4-8.2)
[2021-10-09] MEDS ORDERED: ERTAPENEM SODIUM 1 GM in SODIUM CHLORIDE 50 ML IVPB ONE (16:17)
[2021-10-09] MEDS ORDERED: ACETAMINOPHEN 325 MG TABLET (FP) PO PRN (18:31)
[2021-10-09] MEDS: HEPARIN NA (PORCINE) 5,000 UNITS/ML 1ML VIAL SQ SCH (23:25)
[2021-10-09] MEDS: metoPROLOL SUCCINATE 25 MG TAB.SR.24H (FP) PO SCH (23:25)
[2021-10-09] MEDS: ATORVASTATIN CA 10 MG TABLET (FP) PO SCH (23:25)
[2021-10-10 04:30] VITALS: BMI 25.9
[2021-10-10] MEDS: LEVOTHYROXINE NA 112 MCG TABLET (FP) PO SCH (06:41)
[2021-10-10] MEDS: LACTOBACILLUS ACIDOPHILUS 1 TABLET PO SCH (09:06)
[2021-10-10] MEDS: ENALAPRIL MALEATE 10 MG TABLET PO SCH (09:06)
[2021-10-10] MEDS: LOSARTAN POTASSIUM 50 MG TABLET PO SCH (09:06)
[2021-10-10] MEDS: metoPROLOL SUCCINATE 25 MG TAB.SR.24H (FP) PO SCH ×2 (09:06→21:52)
[2021-10-10] MEDS: HEPARIN NA (PORCINE) 5,000 UNITS/ML 1ML VIAL SQ SCH ×2 (09:07→21:45)
[2021-10-10] MEDS: ASPIRIN COATED 81 MG TABLET.EC PO SCH (09:07)
[2021-10-10] MEDS: CHLORTHALIDONE 25 MG TABLET PO SCH (10:16)
[2021-10-10 10:46] LABS: BASO % 0.4 % (0-2.0); EOS % 1.2 % (0-4.5); HEMATOCRIT 32.1 % (32.4-45.2); HEMOGLOBIN 10.2 GM/dL (10.7-15.3); LYMPH % 20.8 % (8-40); MCH 23.9 pg (25.7-33.7); MCHC 31.6 g/dl (32.0-36.0); MEAN CELL VOLUME 75.6 fl (80-96); MEAN PLT VOLUME 8.2 fl (7.5-11.1); MONO % 6.8 % (3.8-10.2); NEUT % 70.8 % (42.8-82.8); PLATELET COUNT 305 10^3/uL (134-434); RBC 4.25 M/mm3 (3.60-5.2); RDW 16.8 % (11.6-15.6)
[2021-10-10 11:16] LABS: BLOOD UREA NITROGEN 16.9 mg/dL (7-18)
[2021-10-10 11:18] LABS: BILIRUBIN,TOTAL 0.3 mg/dL (0.2-1); CREATININE 1.1 mg/dL (0.55-1.3)
[2021-10-10] MEDS: ERTAPENEM SODIUM 1 GM in SODIUM CHLORIDE 50 ML IVPB SCH (13:18)
[2021-10-10] MEDS: ATORVASTATIN CA 10 MG TABLET (FP) PO SCH (21:52)
[2021-10-11] MEDS: LEVOTHYROXINE NA 112 MCG TABLET (FP) PO SCH (06:19)
[2021-10-11] MEDS: ERTAPENEM SODIUM 1 GM in SODIUM CHLORIDE 50 ML IVPB SCH (10:34)
[2021-10-11] MEDS: metoPROLOL SUCCINATE 25 MG TAB.SR.24H (FP) PO SCH ×2 (10:35→21:46)
[2021-10-11] MEDS: LOSARTAN POTASSIUM 50 MG TABLET PO SCH (10:35)
[2021-10-11] MEDS: CHLORTHALIDONE 25 MG TABLET PO SCH (10:35)
[2021-10-11] MEDS: LACTOBACILLUS ACIDOPHILUS 1 TABLET PO SCH (10:35)
[2021-10-11] MEDS: ENALAPRIL MALEATE 10 MG TABLET PO SCH (10:35)
[2021-10-11] MEDS: HEPARIN NA (PORCINE) 5,000 UNITS/ML 1ML VIAL SQ SCH ×3 (10:36→21:49)
[2021-10-11] MEDS: ASPIRIN COATED 81 MG TABLET.EC PO SCH (10:36)
[2021-10-11] MEDS: ATORVASTATIN CA 10 MG TABLET (FP) PO SCH (21:46)
[2021-10-12] MEDS: LEVOTHYROXINE NA 112 MCG TABLET (FP) PO SCH (06:33)
[2021-10-12] MEDS: LACTOBACILLUS ACIDOPHILUS 1 TABLET PO SCH (10:21)
[2021-10-12] MEDS: ASPIRIN COATED 81 MG TABLET.EC PO SCH (10:21)
[2021-10-12] MEDS: CHLORTHALIDONE 25 MG TABLET PO SCH (10:21)
[2021-10-12] MEDS: metoPROLOL SUCCINATE 25 MG TAB.SR.24H (FP) PO SCH ×2 (10:21→21:16)
[2021-10-12] MEDS: HEPARIN NA (PORCINE) 5,000 UNITS/ML 1ML VIAL SQ SCH ×2 (10:21→21:40)
[2021-10-12] MEDS: LOSARTAN POTASSIUM 50 MG TABLET PO SCH (10:21)
[2021-10-12] MEDS: ERTAPENEM SODIUM 1 GM in SODIUM CHLORIDE 50 ML IVPB SCH (10:22)
[2021-10-12] MEDS: ATORVASTATIN CA 10 MG TABLET (FP) PO SCH (21:15)
[2021-10-13] MEDS: LEVOTHYROXINE NA 112 MCG TABLET (FP) PO SCH (06:38)
[2021-10-13] MEDS: ASPIRIN COATED 81 MG TABLET.EC PO SCH (09:03)
[2021-10-13] MEDS: CHLORTHALIDONE 25 MG TABLET PO SCH (09:03)
[2021-10-13] MEDS: ERTAPENEM SODIUM 1 GM in SODIUM CHLORIDE 50 ML IVPB SCH (09:03)
[2021-10-13] MEDS: LACTOBACILLUS ACIDOPHILUS 1 TABLET PO SCH (09:03)
[2021-10-13] MEDS: metoPROLOL SUCCINATE 25 MG TAB.SR.24H (FP) PO SCH ×2 (09:03→21:54)
[2021-10-13] MEDS: HEPARIN NA (PORCINE) 5,000 UNITS/ML 1ML VIAL SQ SCH ×2 (09:03→21:55)
[2021-10-13] MEDS: LOSARTAN POTASSIUM 50 MG TABLET PO SCH (09:03)
[2021-10-13] MEDS: ATORVASTATIN CA 10 MG TABLET (FP) PO SCH (21:54)
[2021-10-14] MEDS: LEVOTHYROXINE NA 112 MCG TABLET (FP) PO SCH (06:14)
[2021-10-14] MEDS: LACTOBACILLUS ACIDOPHILUS 1 TABLET PO SCH (09:11)
[2021-10-14] MEDS: ERTAPENEM SODIUM 1 GM in SODIUM CHLORIDE 50 ML IVPB SCH (09:11)
[2021-10-14] MEDS: LOSARTAN POTASSIUM 50 MG TABLET PO SCH (09:11)
[2021-10-14] MEDS: metoPROLOL SUCCINATE 25 MG TAB.SR.24H (FP) PO SCH (09:11)
[2021-10-14] MEDS: CHLORTHALIDONE 25 MG TABLET PO SCH (09:12)
[2021-10-14] MEDS: HEPARIN NA (PORCINE) 5,000 UNITS/ML 1ML VIAL SQ SCH (09:12)
[2021-10-14] MEDS: ASPIRIN COATED 81 MG TABLET.EC PO SCH (09:12)
[2021-10-14 14:08] VITALS: BP 124/56; PULSE 61; TEMP 98.6
== END 2021-10-14 18:23 | disposition home or self-care (01) | DRG 690 ==
LOC: JER 13:09 → JERBED 17:05 → J6S 22:30
PROVIDERS: ADMIT Internal Medicine; ATTEND Internal Medicine
PROC: 02HV33Z Insertion of Infusion Device into Superior Vena Cava, Percutaneous Approach (ICD-10-PCS; principal; 2021-10-14)
PROC: B548ZZA Ultrasonography of Superior Vena Cava, Guidance (ICD-10-PCS; 2021-10-14)
DX: N39.0 Urinary tract infection, site not specified (principal); Z16.12 Extended spectrum beta lactamase (ESBL) resistance; I10 Essential (primary) hypertension; E03.9 Hypothyroidism, unspecified; B96.20 Unspecified Escherichia coli [E. coli] as the cause of diseases classified elsewhere; Z88.0 Allergy status to penicillin
CPT/HCPCS: 36415; 36569; 80053; 81003; 83036; 84443; 85025; 87040; 87086; 87186; 93005; 93010; 99285-25; C9803-CS; J1644; U0003; U0005

== ENCOUNTER 2022-01-22 21:42 | Inpatient (IN) | payer OTHER ==
[2022-01-22 21:50] VITALS: BMI 28.3
[2022-01-23 01:03] LABS: HEMATOCRIT 35.1 % (32.4-45.2); HEMOGLOBIN 11.4 GM/dL (10.7-15.3); MCH 25.2 pg (25.7-33.7); MCHC 32.4 g/dl (32.0-36.0); MEAN CELL VOLUME 77.9 fl (80-96); MEAN PLT VOLUME 9.5 fl (7.5-11.1); PLATELET COUNT 298 10^3/uL (134-434); RDW 16.3 % (11.6-15.6); WHITE BLOOD COUNT 14.2 K/mm3 (4.0-10.0)
[2022-01-23 01:33] LABS: EPI CELLS 27 /uL (0-25.1); HYALINE CASTS 3 /uL (0-3.1); URINE APPEARANCE CLOUDY; URINE BACTERIA 6445 /uL (0-1359); URINE BILIRUBIN NEGATIVE (NEGATIVE); URINE COLOR YELLOW; URINE GLUCOSE (UA) NEGATIVE (NEGATIVE); URINE KETONE NEGATIVE (NEGATIVE); URINE LEUK ESTERASE 3+ (NEGATIVE); URINE NITRITE NEGATIVE (NEGATIVE); URINE PROTEIN 1+ (NEGATIVE); URINE RBC 9 /uL (0-23.9); URINE UROBILINOGEN 0.2 mg/dL (0.2-1.0); URINE WBC 777 /uL (0-25.8)
[2022-01-23 01:35] LABS: ALBUMIN 3.6 g/dl (3.4-5.0); BLOOD UREA NITROGEN 19.9 mg/dL (7-18); CALCIUM 9.5 mg/dL (8.5-10.1)
[2022-01-23 01:38] LABS: CREATININE 1.2 mg/dL (0.55-1.3)
[2022-01-23 01:40] LABS: BILIRUBIN,TOTAL 0.2 mg/dL (0.2-1)
[2022-01-23] MEDS ORDERED: MEROPENEM 1 GM in DEXTROSE 5%-WATER 100 ML IVPB ONE (01:49)
[2022-01-23] MEDS ORDERED: MEROPENEM 1 GM VIAL (RESTRICTED TO ID) IVPB ONE (01:54)
[2022-01-23] MEDS: LEVOTHYROXINE NA 112 MCG TABLET (FP) PO SCH (07:06)
[2022-01-23 07:16] LABS: ANISOCYTOSIS 2+; MACROCYTOSIS 0; OVALOCYTE 2+
[2022-01-23] MEDS: metoPROLOL SUCCINATE 25 MG TAB.SR.24H (FP) PO SCH ×2 (09:09→21:54)
[2022-01-23] MEDS: amLODIPine BESYLATE 10 MG TABLET (FP) PO SCH (09:09)
[2022-01-23] MEDS: ASPIRIN COATED 81 MG TABLET.EC PO SCH (09:09)
[2022-01-23] MEDS ORDERED: ERTAPENEM SODIUM 1 GM in SODIUM CHLORIDE 50 ML IVPB SCH (10:00)
[2022-01-23] MEDS: LOSARTAN POTASSIUM 50 MG TABLET PO SCH (13:55)
[2022-01-23] MEDS: ATORVASTATIN CA 10 MG TABLET (FP) PO SCH (21:54)
[2022-01-24] MEDS: LEVOTHYROXINE NA 112 MCG TABLET (FP) PO SCH (06:40)
[2022-01-24] MEDS: ERTAPENEM SODIUM 1 GM in SODIUM CHLORIDE 50 ML IVPB SCH ×2 (09:25→12:21)
[2022-01-24] MEDS: metoPROLOL SUCCINATE 25 MG TAB.SR.24H (FP) PO SCH ×2 (10:57→22:19)
[2022-01-24] MEDS: amLODIPine BESYLATE 10 MG TABLET (FP) PO SCH (10:57)
[2022-01-24] MEDS: ASPIRIN COATED 81 MG TABLET.EC PO SCH (10:57)
[2022-01-24] MEDS: LOSARTAN POTASSIUM 50 MG TABLET PO SCH (14:03)
[2022-01-24] MEDS: HEPARIN NA (PORCINE) 5,000 UNITS/ML 1ML VIAL SQ SCH (22:19)
[2022-01-24] MEDS: ATORVASTATIN CA 10 MG TABLET (FP) PO SCH (22:20)
[2022-01-25] MEDS: LEVOTHYROXINE NA 112 MCG TABLET (FP) PO SCH (06:02)
[2022-01-25] MEDS: HEPARIN NA (PORCINE) 5,000 UNITS/ML 1ML VIAL SQ SCH ×3 (11:34→22:05)
[2022-01-25] MEDS: ERTAPENEM SODIUM 1 GM in SODIUM CHLORIDE 50 ML IVPB SCH (11:35)
[2022-01-25] MEDS: amLODIPine BESYLATE 10 MG TABLET (FP) PO SCH (11:35)
[2022-01-25] MEDS: metoPROLOL SUCCINATE 25 MG TAB.SR.24H (FP) PO SCH ×2 (11:35→21:58)
[2022-01-25] MEDS: ASPIRIN COATED 81 MG TABLET.EC PO SCH (11:35)
[2022-01-25 13:14] LABS: BLOOD UREA NITROGEN 14.1 mg/dL (7-18); CALCIUM 9.5 mg/dL (8.5-10.1)
[2022-01-25 13:18] LABS: CREATININE 1.1 mg/dL (0.55-1.3)
[2022-01-25] MEDS: LOSARTAN POTASSIUM 50 MG TABLET PO SCH (15:32)
[2022-01-25] MEDS: ATORVASTATIN CA 10 MG TABLET (FP) PO SCH (21:57)
[2022-01-26] MEDS: LEVOTHYROXINE NA 112 MCG TABLET (FP) PO SCH (06:44)
[2022-01-26] MEDS: ASPIRIN COATED 81 MG TABLET.EC PO SCH (11:14)
[2022-01-26] MEDS: ERTAPENEM SODIUM 1 GM in SODIUM CHLORIDE 50 ML IVPB SCH (11:15)
[2022-01-26] MEDS: metoPROLOL SUCCINATE 25 MG TAB.SR.24H (FP) PO SCH ×2 (11:15→21:08)
[2022-01-26] MEDS: amLODIPine BESYLATE 10 MG TABLET (FP) PO SCH (11:15)
[2022-01-26] MEDS: HEPARIN NA (PORCINE) 5,000 UNITS/ML 1ML VIAL SQ SCH ×2 (11:15→21:10)
[2022-01-26 12:01] LABS: BASO % 0.4 % (0-2.0); EOS % 1.7 % (0-4.5); HEMATOCRIT 35.9 % (32.4-45.2); HEMOGLOBIN 11.5 GM/dL (10.7-15.3); LYMPH % 26.9 % (8-40); MCH 25.4 pg (25.7-33.7); MEAN CELL VOLUME 79.1 fl (80-96); MEAN PLT VOLUME 8.9 fl (7.5-11.1); MONO % 5.7 % (3.8-10.2); NEUT % 65.3 % (42.8-82.8); PLATELET COUNT 290 10^3/uL (134-434); RBC 4.54 M/mm3 (3.60-5.2); WHITE BLOOD COUNT 9.2 K/mm3 (4.0-10.0)
[2022-01-26 12:40] LABS: ALBUMIN 3.1 g/dl (3.4-5.0); BLOOD UREA NITROGEN 15.8 mg/dL (7-18)
[2022-01-26 12:41] LABS: CALCIUM 9.4 mg/dL (8.5-10.1)
[2022-01-26 12:42] LABS: TOT PROT 7.3 g/dl (6.4-8.2)
[2022-01-26 12:43] LABS: CREATININE 0.9 mg/dL (0.55-1.3)
[2022-01-26 12:49] LABS: BILIRUBIN,TOTAL 0.4 mg/dL (0.2-1)
[2022-01-26] MEDS: LOSARTAN POTASSIUM 50 MG TABLET PO SCH (15:08)
[2022-01-26] MEDS: ATORVASTATIN CA 10 MG TABLET (FP) PO SCH (21:09)
[2022-01-27] MEDS: LEVOTHYROXINE NA 112 MCG TABLET (FP) PO SCH (06:03)
[2022-01-27] MEDS: HEPARIN NA (PORCINE) 5,000 UNITS/ML 1ML VIAL SQ SCH ×2 (11:48→21:22)
[2022-01-27] MEDS: amLODIPine BESYLATE 10 MG TABLET (FP) PO SCH (11:52)
[2022-01-27] MEDS: metoPROLOL SUCCINATE 25 MG TAB.SR.24H (FP) PO SCH ×2 (11:52→21:22)
[2022-01-27] MEDS: ASPIRIN COATED 81 MG TABLET.EC PO SCH (11:52)
[2022-01-27] MEDS: ERTAPENEM SODIUM 1 GM in SODIUM CHLORIDE 50 ML IVPB SCH (11:53)
[2022-01-27] MEDS: LOSARTAN POTASSIUM 50 MG TABLET PO SCH (15:17)
[2022-01-27] MEDS: ATORVASTATIN CA 10 MG TABLET (FP) PO SCH (21:22)
[2022-01-28] MEDS: LEVOTHYROXINE NA 112 MCG TABLET (FP) PO SCH (06:06)
[2022-01-28] MEDS: HEPARIN NA (PORCINE) 5,000 UNITS/ML 1ML VIAL SQ SCH ×2 (11:08→21:13)
[2022-01-28] MEDS: amLODIPine BESYLATE 10 MG TABLET (FP) PO SCH (11:08)
[2022-01-28] MEDS: metoPROLOL SUCCINATE 25 MG TAB.SR.24H (FP) PO SCH ×2 (11:08→21:12)
[2022-01-28] MEDS: ASPIRIN COATED 81 MG TABLET.EC PO SCH (11:08)
[2022-01-28] MEDS: ERTAPENEM SODIUM 1 GM in SODIUM CHLORIDE 50 ML IVPB SCH (11:09)
[2022-01-28 15:46] VITALS: RESP 18
[2022-01-28] MEDS: LOSARTAN POTASSIUM 50 MG TABLET PO SCH (16:23)
[2022-01-28] MEDS: ATORVASTATIN CA 10 MG TABLET (FP) PO SCH (21:13)
[2022-01-29] MEDS: LEVOTHYROXINE NA 112 MCG TABLET (FP) PO SCH (06:13)
[2022-01-29] MEDS: amLODIPine BESYLATE 10 MG TABLET (FP) PO SCH (10:24)
[2022-01-29] MEDS: metoPROLOL SUCCINATE 25 MG TAB.SR.24H (FP) PO SCH (10:24)
[2022-01-29] MEDS: ASPIRIN COATED 81 MG TABLET.EC PO SCH (10:24)
[2022-01-29] MEDS: HEPARIN NA (PORCINE) 5,000 UNITS/ML 1ML VIAL SQ SCH ×2 (10:24→10:29)
[2022-01-29] MEDS: ERTAPENEM SODIUM 1 GM in SODIUM CHLORIDE 50 ML IVPB SCH (12:47)
[2022-01-29] MEDS: LOSARTAN POTASSIUM 50 MG TABLET PO SCH (13:50)
[2022-01-29 13:57] VITALS: BP 132/66; PULSE 73; TEMP 97.7
== END 2022-01-29 15:23 | disposition home or self-care (01) | DRG 690 ==
LOC: JER 21:42 → JERBED 01-23 02:30 → J5S 01-23 06:23 → J6S 01-28 23:44
PROVIDERS: ADMIT Internal Medicine; ATTEND Internal Medicine
DX: N39.0 Urinary tract infection, site not specified (principal); Z16.12 Extended spectrum beta lactamase (ESBL) resistance; E03.9 Hypothyroidism, unspecified; I10 Essential (primary) hypertension; D72.829 Elevated white blood cell count, unspecified; F41.9 Anxiety disorder, unspecified; B96.20 Unspecified Escherichia coli [E. coli] as the cause of diseases classified elsewhere
CPT/HCPCS: 36415; 71045-TC-FY; 80048; 80053; 81003; 85025; 87040; 87086; 87186; 93005; 93010; 99285-25; C9803-CS; J1644; U0003; U0005

== ENCOUNTER 2022-05-22 10:35 | Inpatient (IN) | payer OTHER ==
[2022-05-22 10:47] VITALS: BMI 27.8
[2022-05-22] MEDS ORDERED: MEROPENEM 1 GM in DEXTROSE 5%-WATER 100 ML IVPB ONE (11:31)
[2022-05-22] MEDS ORDERED: MEROPENEM 1 GM VIAL (RESTRICTED TO ID) IVPB ONE (11:53)
[2022-05-22 11:59] LABS: EPI CELLS >36 /uL (0-25.1); HYALINE CASTS 6 /uL (0-3.1); PH,URINE 5.5 (5.0-8.0); URINE APPEARANCE CLOUDY; URINE BACTERIA 256 /uL (0-1359); URINE BILIRUBIN NEGATIVE (NEGATIVE); URINE COLOR DK YELLOW; URINE GLUCOSE (UA) NEGATIVE (NEGATIVE); URINE KETONE TRACE (NEGATIVE); URINE LEUK ESTERASE 3+ (NEGATIVE); URINE NITRITE NEGATIVE (NEGATIVE); URINE PROTEIN 1+ (NEGATIVE); URINE RBC 11 /uL (0-23.9); URINE UROBILINOGEN 0.2 mg/dL (0.2-1.0); URINE WBC 588 /uL (0-25.8)
[2022-05-22 12:12] LABS: BASO % 0.3 % (0-2.0); EOS % 1.7 % (0-4.5); HEMATOCRIT 32.8 % (32.4-45.2); HEMOGLOBIN 10.6 GM/dL (10.7-15.3); MCH 24.1 pg (25.7-33.7); MCHC 32.2 g/dl (32.0-36.0); MEAN CELL VOLUME 74.7 fl (80-96); MEAN PLT VOLUME 8.6 fl (7.5-11.1); MONO % 6.9 % (3.8-10.2); NEUT % 66.1 % (42.8-82.8); PLATELET COUNT 298 10^3/uL (134-434); RDW 16.3 % (11.6-15.6); WHITE BLOOD COUNT 12.5 K/mm3 (4.0-10.0)
[2022-05-22 12:18] LABS: INR 1.05 (0.83-1.09); PROTHROMBIN TIME (PATIENT) 12.2 SEC (9.7-13.0)
[2022-05-22 12:21] LABS: ACTIVATED PTT 27.1 SECONDS (25.2-36.5)
[2022-05-22 12:32] LABS: ALBUMIN 3.4 g/dl (3.4-5.0); BLOOD UREA NITROGEN 15.5 mg/dL (7-18); CALCIUM 9.1 mg/dL (8.5-10.1)
[2022-05-22 12:35] LABS: CREATININE 1.2 mg/dL (0.55-1.3)
[2022-05-22 12:36] LABS: BILIRUBIN,TOTAL 0.4 mg/dL (0.2-1); TOT PROT 7.8 g/dl (6.4-8.2)
[2022-05-22] MEDS ORDERED: ACETAMINOPHEN 500 MG TABLET (FP) PO PRN (12:47)
[2022-05-22] MEDS ORDERED: MEROPENEM 1 GM in DEXTROSE 5%-WATER 100 ML IVPB SCH ×2 (18:00→22:00)
[2022-05-22] MEDS: ATORVASTATIN CA 10 MG TABLET (FP) PO SCH (22:50)
[2022-05-22] MEDS: MEROPENEM 1 GM in DEXTROSE 5%-WATER 100 ML IVPB SCH (22:50)
[2022-05-22] MEDS: metoPROLOL SUCCINATE 25 MG TAB.SR.24H (FP) PO SCH (22:50)
[2022-05-23] MEDS: LEVOTHYROXINE NA 112 MCG TABLET (FP) PO SCH (06:20)
[2022-05-23 06:49] LABS: BASO % 0.6 % (0-2.0); EOS % 2.7 % (0-4.5); HEMATOCRIT 33.2 % (32.4-45.2); HEMOGLOBIN 11.1 GM/dL (10.7-15.3); LYMPH % 27.8 % (8-40); MCH 24.9 pg (25.7-33.7); MCHC 33.3 g/dl (32.0-36.0); MEAN CELL VOLUME 74.7 fl (80-96); MEAN PLT VOLUME 8.5 fl (7.5-11.1); MONO % 4.9 % (3.8-10.2); PLATELET COUNT 283 10^3/uL (134-434); RBC 4.45 M/mm3 (3.60-5.2); RDW 15.9 % (11.6-15.6); WHITE BLOOD COUNT 9.4 K/mm3 (4.0-10.0)
[2022-05-23 07:08] LABS: ALBUMIN 3.4 g/dl (3.4-5.0); BLOOD UREA NITROGEN 14.4 mg/dL (7-18)
[2022-05-23 07:12] LABS: BILIRUBIN,TOTAL 0.4 mg/dL (0.2-1); TOT PROT 7.7 g/dl (6.4-8.2)
[2022-05-23] MEDS: ENOXAPARIN NA (PORCINE) 40 MG/0.4 ML DISP.SYRIN SQ SCH (09:59)
[2022-05-23] MEDS: CHLORTHALIDONE 25 MG TABLET PO SCH (09:59)
[2022-05-23] MEDS: MEROPENEM 1 GM in DEXTROSE 5%-WATER 100 ML IVPB SCH ×2 (09:59→22:10)
[2022-05-23] MEDS: LACTOBACILLUS ACIDOPHILUS 1 TABLET PO SCH (09:59)
[2022-05-23] MEDS: metoPROLOL SUCCINATE 25 MG TAB.SR.24H (FP) PO SCH ×2 (09:59→22:11)
[2022-05-23] MEDS: ASPIRIN COATED 81 MG TABLET.EC PO SCH (10:00)
[2022-05-23] MEDS: LOSARTAN POTASSIUM 50 MG TABLET PO SCH (10:00)
[2022-05-23] MEDS: ATORVASTATIN CA 10 MG TABLET (FP) PO SCH (22:10)
[2022-05-24] MEDS: LEVOTHYROXINE NA 112 MCG TABLET (FP) PO SCH (06:25)
[2022-05-24] MEDS: MEROPENEM 1 GM in DEXTROSE 5%-WATER 100 ML IVPB SCH ×2 (11:13→22:03)
[2022-05-24] MEDS: LOSARTAN POTASSIUM 50 MG TABLET PO SCH (11:14)
[2022-05-24] MEDS: CHLORTHALIDONE 25 MG TABLET PO SCH (11:14)
[2022-05-24] MEDS: ASPIRIN COATED 81 MG TABLET.EC PO SCH (11:14)
[2022-05-24] MEDS: LACTOBACILLUS ACIDOPHILUS 1 TABLET PO SCH (11:14)
[2022-05-24] MEDS: metoPROLOL SUCCINATE 25 MG TAB.SR.24H (FP) PO SCH ×2 (11:14→22:03)
[2022-05-24] MEDS: ENOXAPARIN NA (PORCINE) 40 MG/0.4 ML DISP.SYRIN SQ SCH (11:14)
[2022-05-24] MEDS: ATORVASTATIN CA 10 MG TABLET (FP) PO SCH (22:03)
[2022-05-24 22:11] VITALS: RESP 18
[2022-05-25] MEDS: LEVOTHYROXINE NA 112 MCG TABLET (FP) PO SCH (06:04)
[2022-05-25] MEDS ORDERED: ERTAPENEM SODIUM 1 GM in SODIUM CHLORIDE 50 ML IVPB SCH (10:00)
[2022-05-25] MEDS: ENOXAPARIN NA (PORCINE) 40 MG/0.4 ML DISP.SYRIN SQ SCH (10:21)
[2022-05-25] MEDS: CHLORTHALIDONE 25 MG TABLET PO SCH (10:21)
[2022-05-25] MEDS: ASPIRIN COATED 81 MG TABLET.EC PO SCH (10:22)
[2022-05-25] MEDS: LOSARTAN POTASSIUM 50 MG TABLET PO SCH (10:22)
[2022-05-25] MEDS: LACTOBACILLUS ACIDOPHILUS 1 TABLET PO SCH (10:22)
[2022-05-25] MEDS: metoPROLOL SUCCINATE 25 MG TAB.SR.24H (FP) PO SCH (10:22)
[2022-05-25 10:52] VITALS: BP 141/64; PULSE 68; TEMP 97.6
[2022-05-26] MEDS ORDERED: LEVOTHYROXINE NA 125 MCG TABLET (FP) PO SCH (07:00)
== END 2022-05-25 14:35 | disposition home or self-care (01) | DRG 689 ==
LOC: JER 10:35 → JERBED 12:46 → J7W 13:59
PROVIDERS: ADMIT Internal Medicine; ATTEND Internal Medicine
DX: N39.0 Urinary tract infection, site not specified (principal); U07.1 COVID-19; Z16.12 Extended spectrum beta lactamase (ESBL) resistance; I10 Essential (primary) hypertension; E03.9 Hypothyroidism, unspecified; B96.20 Unspecified Escherichia coli [E. coli] as the cause of diseases classified elsewhere
CPT/HCPCS: 36415; 71045-TC-FY; 80053; 81003; 84439; 84443; 85025; 85610; 85730; 87040; 87086; 87186; 93005; 93010; 99285-25; C9803-CS; U0003; U0005

== ENCOUNTER 2022-06-19 02:36 | Observation (INO) | payer OTHER ==
[2022-06-19 02:49] VITALS: BMI 27.8
[2022-06-19] MEDS ORDERED: morphine CARPU-JECT 2 MG/1 ML DISP.SYRIN IVPUSH ONE ×2 (03:10→06:45)
[2022-06-19] MEDS ORDERED: LIDOCAINE 5% TOPICAL PATCH TP ONE (03:14)
[2022-06-19] MEDS ORDERED: morphine CARPU-JECT 2 MG/1 ML DISP.SYRIN IM ONE ×2 (03:17→03:18)
[2022-06-19] MEDS ORDERED: LIDOCAINE 5% TOPICAL PATCH ONE (03:17)
[2022-06-19] MEDS ORDERED: BUPIVACAINE HCL 0.25% 125 MG/50 ML VIAL INF ONE (03:53)
[2022-06-19] MEDS ORDERED: methylPREDNISolone ACET (DEPO) 40 MG/1 ML VIAL IM ONE (03:55)
[2022-06-19] MEDS ORDERED: BUPIVACAINE HCL/PF 0.5% (5MG/ML) 10 ML VIAL ONE (03:58)
[2022-06-19] MEDS ORDERED: LIDOCAINE HCL 2% (20ML MULTI-DOSE VIAL) ONE (03:58)
[2022-06-19] MEDS ORDERED: methylPREDNISolone NA SUCC 40 MG/1 ML VIAL ONE (03:58)
[2022-06-19] MEDS ORDERED: morphine SULFATE 4 MG/ML VIAL ONE (06:51)
[2022-06-19 06:58] LABS: BASO % 0.3 % (0-2.0); HEMATOCRIT 31.5 % (32.4-45.2); HEMOGLOBIN 10.7 GM/dL (10.7-15.3); LYMPH % 8.4 % (8-40); MEAN CELL VOLUME 73.6 fl (80-96); MONO % 1.9 % (3.8-10.2); NEUT % 89.4 % (42.8-82.8); PLATELET COUNT 263 10^3/uL (134-434); RBC 4.27 M/mm3 (3.60-5.2); RDW 15.7 % (11.6-15.6); WHITE BLOOD COUNT 12.9 K/mm3 (4.0-10.0)
[2022-06-19 07:19] LABS: POTASSIUM 4.3 mmol/L (3.5-5.1)
[2022-06-19 07:21] LABS: CALCIUM 9.7 mg/dL (8.5-10.1)
[2022-06-19 07:22] LABS: ALBUMIN 3.3 g/dl (3.4-5.0); BLOOD UREA NITROGEN 7.7 mg/dL (7-18)
[2022-06-19 07:25] LABS: CREATININE 0.9 mg/dL (0.55-1.3)
[2022-06-19 07:26] LABS: BILIRUBIN,TOTAL 0.5 mg/dL (0.2-1); TOT PROT 8.1 g/dl (6.4-8.2)
[2022-06-19] MEDS ORDERED: ACETAMINOPHEN 1000 MG/100 ML BAG IVPB ONE (09:06)
[2022-06-19] MEDS ORDERED: ACETAMINOPHEN INJECTION 100 ML IVPB ONE (09:29)
[2022-06-19] MEDS ORDERED: predniSONE 20 MG TABLET (UD) PO ONE (09:39)
[2022-06-19] MEDS ORDERED: predniSONE 20 MG TABLET (UD) ONE (10:16)
[2022-06-19] MEDS ORDERED: traMADol HCL 50 MG TABLET ONE (10:16)
[2022-06-19] MEDS: traMADol HCL 50 MG TABLET PO PRN (10:30)
[2022-06-19 17:01] VITALS: RESP 18
[2022-06-19] MEDS ORDERED: LIDOCAINE PATCH REMOVAL MC ONE (22:00)
[2022-06-20 10:53] LABS: BASO % 0.1 % (0-2.0); HEMATOCRIT 32.7 % (32.4-45.2); HEMOGLOBIN 10.8 GM/dL (10.7-15.3); LYMPH % 12.3 % (8-40); MCH 24.4 pg (25.7-33.7); MCHC 32.9 g/dl (32.0-36.0); MEAN CELL VOLUME 74.2 fl (80-96); MEAN PLT VOLUME 8.8 fl (7.5-11.1); MONO % 6.8 % (3.8-10.2); NEUT % 80.8 % (42.8-82.8); PLATELET COUNT 327 10^3/uL (134-434); RDW 16.3 % (11.6-15.6); WHITE BLOOD COUNT 16.4 K/mm3 (4.0-10.0)
[2022-06-20 11:05] LABS: POTASSIUM 4.1 mmol/L (3.5-5.1)
[2022-06-20 11:10] LABS: CALCIUM 9.4 mg/dL (8.5-10.1)
[2022-06-20 11:11] LABS: ALBUMIN 3.1 g/dl (3.4-5.0); BLOOD UREA NITROGEN 22.6 mg/dL (7-18)
[2022-06-20 11:14] LABS: CREATININE 1.4 mg/dL (0.55-1.3)
[2022-06-20 11:16] LABS: BILIRUBIN,TOTAL 0.3 mg/dL (0.2-1); TOT PROT 7.9 g/dl (6.4-8.2)
[2022-06-20] MEDS: traMADol HCL 50 MG TABLET PO PRN (23:53)
[2022-06-21 13:38] VITALS: BP 140/70; PULSE 68; TEMP 98
== END 2022-06-21 15:23 | disposition home or self-care (01) ==
LOC: JER 02:36 → JERBED 06:13 → INTOOBSV 06:13 → UNDOADMOB 06:13 → JERBED 14:37 → J8W 16:54
PROVIDERS: ADMIT Internal Medicine; ATTEND Internal Medicine
PROC: 3E033NZ Introduction of Analgesics, Hypnotics, Sedatives into Peripheral Vein, Percutaneous Approach (ICD-10-PCS; principal; 2022-06-19)
PROC: 3E023GC Introduction of Other Therapeutic Substance into Muscle, Percutaneous Approach (ICD-10-PCS; 2022-06-19)
PROC: 3E023NZ Introduction of Analgesics, Hypnotics, Sedatives into Muscle, Percutaneous Approach (ICD-10-PCS; 2022-06-19)
PROC: 3E033NZ Introduction of Analgesics, Hypnotics, Sedatives into Peripheral Vein, Percutaneous Approach (ICD-10-PCS; 2022-06-19)
DX: M25.512 Pain in left shoulder (principal); I10 Essential (primary) hypertension; U07.1 COVID-19; E87.1 Hypo-osmolality and hyponatremia; Z87.440 Personal history of urinary (tract) infections; E03.9 Hypothyroidism, unspecified; F41.9 Anxiety disorder, unspecified; R78.81 Bacteremia; E87.6 Hypokalemia; R94.31 Abnormal electrocardiogram [ECG] [EKG]; N30.90 Cystitis, unspecified without hematuria; M25.561 Pain in right knee; M25.69 Stiffness of other specified joint, not elsewhere classified; R19.7 Diarrhea, unspecified; R42 Dizziness and giddiness; R77.8 Other specified abnormalities of plasma proteins; K21.9 Gastro-esophageal reflux disease without esophagitis; Z88.2 Allergy status to sulfonamides; Z88.0 Allergy status to penicillin; Z88.8 Allergy status to other drugs, medicaments and biological substances
CPT/HCPCS: 0241U-QW; 36415; 73030-TC-LT-FY; 73218-TC-LT; 80053; 85025; 86850; 86900; 86901; 93005; 93010; 96372; 96374; 96375; 99285-25; G0378

== ENCOUNTER 2022-07-21 03:54 | Day surgery (SDC) | payer OTHER ==
[2022-07-20 09:16] VITALS: BMI 30.2
[2022-07-21] MEDS ORDERED: MIDAZOLAM HCL 2 MG/2 ML SINGLE DOSE VIAL ONE (07:23)
[2022-07-21] MEDS ORDERED: PROPOFOL 20 ML ONE ×2 (07:23→09:21)
[2022-07-21] MEDS ORDERED: SUCCINYLCHOLINE CHLORIDE 200 MG/10 ML SYRINGE ONE (07:24)
[2022-07-21] MEDS ORDERED: DEXAMETHASONE SOD PHOSPHATE 10 MG/1 ML VIAL ONE (07:31)
[2022-07-21] MEDS ORDERED: ROPIVACAINE HCL 0.5% 30ML VIAL ONE (07:31)
[2022-07-21] MEDS ORDERED: ceFAZolin SODIUM 1 GM VIAL IVPB ONE (08:41)
[2022-07-21] MEDS ORDERED: oxyCODONE HCL 5 MG TABLET PO PRN (09:36)
[2022-07-21] MEDS ORDERED: ONDANSETRON 4 MG/2 ML VIAL IVPUSH PRN (09:36)
[2022-07-21] MEDS ORDERED: LACTATED RINGERS SOLUTION 1,000 ML IV SCH (09:45)
[2022-07-21 11:57] VITALS: RESP 18
[2022-07-21 15:55] VITALS: BP 127/52; PULSE 72; TEMP 98.2
== END 2022-07-21 15:55 | disposition home or self-care (01) ==
LOC: JASU-SURG 03:54
PROVIDERS: ATTEND Orthopaedic Surgery
PROC: 0RNK4ZZ Release Left Shoulder Joint, Percutaneous Endoscopic Approach (ICD-10-PCS; principal; 2022-07-21 08:00)
PROC: 0LM24ZZ Reattachment of Left Shoulder Tendon, Percutaneous Endoscopic Approach (ICD-10-PCS; 2022-07-21 08:00)
DX: M75.42 Impingement syndrome of left shoulder (principal); M19.012 Primary osteoarthritis, left shoulder; M75.102 Unspecified rotator cuff tear or rupture of left shoulder, not specified as traumatic
CPT/HCPCS: 94760; C1713; J1100

== ENCOUNTER 2023-02-13 16:55 | Inpatient (IN) | payer OTHER ==
[2023-02-13] MEDS ORDERED: ACETAMINOPHEN 1000 MG/100 ML BAG IVPB ONE (17:41)
[2023-02-13] MEDS ORDERED: ACETAMINOPHEN INJECTION 100 ML IVPB ONE (18:05)
[2023-02-13] MEDS ORDERED: ALBUTEROL SO4 2.5/IPRATROPIUM 0.5 INH SOL 3 ML VIAL.NEB. NEB ONE (18:05)
[2023-02-13] MEDS: ALBUTEROL SO4 2.5/IPRATROPIUM 0.5 INH SOL 3 ML VIAL.NEB. NEB SCH (18:19)
[2023-02-13 18:21] LABS: BASO % 0.5 % (0-2.0); HEMATOCRIT 36.8 % (32.4-45.2); HEMOGLOBIN 11.9 GM/dL (10.7-15.3); LYMPH % 15.2 % (8-40); MCH 25.8 pg (25.7-33.7); MCHC 32.3 g/dl (32.0-36.0); MEAN CELL VOLUME 79.9 fl (80-96); MONO % 4.9 % (3.8-10.2); NEUT % 79.4 % (42.8-82.8); RBC 4.61 M/mm3 (3.60-5.2); RDW 19.6 % (11.6-15.6); WHITE BLOOD COUNT 11.1 K/mm3 (4.0-10.0)
[2023-02-13 18:44] LABS: POTASSIUM 3.9 mmol/L (3.5-5.1)
[2023-02-13 18:46] LABS: CALCIUM 8.8 mg/dL (8.5-10.1)
[2023-02-13 18:47] LABS: ALBUMIN 3.3 g/dl (3.4-5.0); BLOOD UREA NITROGEN 16.8 mg/dL (7-18)
[2023-02-13 18:50] LABS: CREATININE 1.4 mg/dL (0.55-1.3); THROAT:GRP A STREP NOT DETECTED (NOTDETECTED)
[2023-02-13 18:51] LABS: BILIRUBIN,TOTAL 0.4 mg/dL (0.2-1); TOT PROT 7.7 g/dl (6.4-8.2)
[2023-02-13] MEDS ORDERED: SODIUM CHLORIDE 0.9% 500 ML INFUS.BAG IV ONE (22:09)
[2023-02-13] MEDS ORDERED: DOCUSATE SODIUM 100 MG CAPSULE (FP) PO PRN (22:22)
[2023-02-13] MEDS ORDERED: SODIUM CHLORIDE 1,000 ML IV SCH (22:30)
[2023-02-13] MEDS ORDERED: ALBUTEROL SO4 2.5/IPRATROPIUM 0.5 INH SOL 3 ML VIAL.NEB. NEB PRN (22:30)
[2023-02-13] MEDS ORDERED: predniSONE 20 MG TABLET (UD) PO ONE (22:31)
[2023-02-14] MEDS ORDERED: ACETAMINOPHEN 1000 MG/100 ML BAG IVPB PRN (00:15)
[2023-02-14] MEDS ORDERED: predniSONE 20 MG TABLET (UD) ONE (03:26)
[2023-02-14 08:15] LABS: BASO % 0.2 % (0-2.0); EOS % 0.1 % (0-4.5); HEMATOCRIT 33.6 % (32.4-45.2); LYMPH % 11.3 % (8-40); MCH 26.5 pg (25.7-33.7); MCHC 32.7 g/dl (32.0-36.0); MEAN CELL VOLUME 81.1 fl (80-96); MEAN PLT VOLUME 8.6 fl (7.5-11.1); MONO % 1.8 % (3.8-10.2); NEUT % 86.6 % (42.8-82.8); PLATELET COUNT 128 10^3/uL (134-434); RBC 4.14 M/mm3 (3.60-5.2); WHITE BLOOD COUNT 9.2 K/mm3 (4.0-10.0)
[2023-02-14 08:49] LABS: BLOOD UREA NITROGEN 14.3 mg/dL (7-18); CALCIUM 8.8 mg/dL (8.5-10.1)
[2023-02-14 08:53] LABS: CREATININE 0.9 mg/dL (0.55-1.3); PHOSPHOROUS 2.6 mg/dL (2.5-4.9)
[2023-02-14] MEDS ORDERED: METOPROLOL TARTRATE 25 MG TABLET (FP) ONE (10:36)
[2023-02-14] MEDS ORDERED: amLODIPine BESYLATE 10 MG TABLET (FP) ONE (10:36)
[2023-02-14] MEDS: METOPROLOL TARTRATE 25 MG TABLET (FP) PO SCH ×2 (10:43→21:27)
[2023-02-14] MEDS: amLODIPine BESYLATE 10 MG TABLET (FP) PO SCH (10:43)
[2023-02-14 11:03] LABS: EPI CELLS >36 /uL (0-25.1); HYALINE CASTS 0 /uL (0-3.1); URINE APPEARANCE CLEAR; URINE BACTERIA 143 /uL (0-1359); URINE BILIRUBIN NEGATIVE (NEGATIVE); URINE COLOR YELLOW; URINE GLUCOSE (UA) NEGATIVE (NEGATIVE); URINE KETONE NEGATIVE (NEGATIVE); URINE LEUK ESTERASE NEGATIVE (NEGATIVE); URINE NITRITE NEGATIVE (NEGATIVE); URINE PROTEIN 2+ (NEGATIVE); URINE RBC 11 /uL (0-23.9); URINE UROBILINOGEN 0.2 mg/dL (0.2-1.0); URINE WBC 33 /uL (0-25.8)
[2023-02-14 18:15] VITALS: BMI 23.7
[2023-02-14] MEDS: ATORVASTATIN CA 10 MG TABLET (FP) PO SCH (21:27)
[2023-02-15] MEDS: LEVOTHYROXINE NA 112 MCG TABLET (FP) PO SCH (06:13)
[2023-02-15] MEDS ORDERED: methylPREDNISolone NA SUCC 40 MG/1 ML VIAL IVPUSH ONE (11:23)
[2023-02-15 11:43] LABS: N-TERMINAL BNP 356.6 pg/ml (5-450)
[2023-02-15] MEDS: guaiFENesin 200 MG/10 ML 10 ML UNIT-DOSE CUPS PO PRN (12:43)
[2023-02-15] MEDS: METOPROLOL TARTRATE 25 MG TABLET (FP) PO SCH ×2 (12:55→21:30)
[2023-02-15] MEDS: amLODIPine BESYLATE 10 MG TABLET (FP) PO SCH (12:56)
[2023-02-15] MEDS ORDERED: predniSONE 20 MG TABLET (UD) PO ONE (14:55)
[2023-02-15] MEDS ORDERED: methylPREDNISolone NA SUCC 40 MG/1 ML VIAL IVPUSH SCH (18:00)
[2023-02-15] MEDS: predniSONE 20 MG TABLET (UD) PO SCH (21:29)
[2023-02-15] MEDS: ATORVASTATIN CA 10 MG TABLET (FP) PO SCH (21:30)
[2023-02-15] MEDS ORDERED: ACETAMINOPHEN 325 MG TABLET (FP) PO PRN (22:22)
[2023-02-16] MEDS: LEVOTHYROXINE NA 112 MCG TABLET (FP) PO SCH (06:23)
[2023-02-16] MEDS: predniSONE 20 MG TABLET (UD) PO SCH (11:27)
[2023-02-16] MEDS: amLODIPine BESYLATE 10 MG TABLET (FP) PO SCH (11:28)
[2023-02-16] MEDS: guaiFENesin 200 MG/10 ML 10 ML UNIT-DOSE CUPS PO PRN (11:28)
[2023-02-16] MEDS: METOPROLOL TARTRATE 25 MG TABLET (FP) PO SCH ×2 (11:28→22:23)
[2023-02-16] MEDS: methylPREDNISolone NA SUCC 40 MG/1 ML VIAL IVPUSH SCH ×2 (15:04→17:56)
[2023-02-16] MEDS: ATORVASTATIN CA 10 MG TABLET (FP) PO SCH (22:23)
[2023-02-17] MEDS: methylPREDNISolone NA SUCC 40 MG/1 ML VIAL IVPUSH SCH ×4 (02:51→23:49)
[2023-02-17] MEDS: LEVOTHYROXINE NA 112 MCG TABLET (FP) PO SCH (06:01)
[2023-02-17] MEDS: amLODIPine BESYLATE 10 MG TABLET (FP) PO SCH (09:58)
[2023-02-17] MEDS: METOPROLOL TARTRATE 25 MG TABLET (FP) PO SCH ×2 (09:58→21:25)
[2023-02-17 11:13] LABS: BASO % 0.2 % (0-2.0); HEMATOCRIT 36.6 % (32.4-45.2); HEMOGLOBIN 11.5 GM/dL (10.7-15.3); LYMPH % 10.7 % (8-40); MCH 25.8 pg (25.7-33.7); MCHC 31.5 g/dl (32.0-36.0); MEAN CELL VOLUME 81.8 fl (80-96); MEAN PLT VOLUME 8.3 fl (7.5-11.1); MONO % 3.1 % (3.8-10.2); PLATELET COUNT 209 10^3/uL (134-434); RBC 4.47 M/mm3 (3.60-5.2); RDW 20.5 % (11.6-15.6); WHITE BLOOD COUNT 15.8 K/mm3 (4.0-10.0)
[2023-02-17 11:19] LABS: POTASSIUM 3.9 mmol/L (3.5-5.1)
[2023-02-17 11:28] LABS: ALBUMIN 2.9 g/dl (3.4-5.0); BLOOD UREA NITROGEN 17.3 mg/dL (7-18); CALCIUM 9.4 mg/dL (8.5-10.1)
[2023-02-17 11:31] LABS: CREATININE 0.9 mg/dL (0.55-1.3)
[2023-02-17 11:32] LABS: TOT PROT 7.4 g/dl (6.4-8.2)
[2023-02-17 11:33] LABS: BILIRUBIN,TOTAL 0.4 mg/dL (0.2-1)
[2023-02-17 12:27] LABS: ANISOCYTOSIS 1+; MACROCYTOSIS 0
[2023-02-17] MEDS: guaiFENesin 200 MG/10 ML 10 ML UNIT-DOSE CUPS PO PRN (16:32)
[2023-02-17] MEDS: ATORVASTATIN CA 10 MG TABLET (FP) PO SCH (21:25)
[2023-02-17] MEDS: BUDESONIDE/FORMETEROL FUMARATE 160/4.5 mcg INHALER IH SCH (23:48)
[2023-02-18] MEDS: LEVOTHYROXINE NA 112 MCG TABLET (FP) PO SCH (06:06)
[2023-02-18] MEDS: amLODIPine BESYLATE 10 MG TABLET (FP) PO SCH (09:53)
[2023-02-18] MEDS: METOPROLOL TARTRATE 25 MG TABLET (FP) PO SCH (09:53)
[2023-02-18] MEDS: BUDESONIDE/FORMETEROL FUMARATE 160/4.5 mcg INHALER IH SCH (09:54)
[2023-02-18] MEDS: methylPREDNISolone NA SUCC 40 MG/1 ML VIAL IVPUSH SCH (12:51)
[2023-02-18] MEDS ORDERED: predniSONE 20 MG TABLET (UD) PO ONE (12:58)
[2023-02-18 14:12] VITALS: BP 131/69; PULSE 54; RESP 18; TEMP 97.9
== END 2023-02-18 19:39 | disposition home or self-care (01) | DRG 203 ==
LOC: JER 16:55 → JERBED 20:20 → J8W 02-14 15:31 → OBSVTOIN 02-15 13:55
PROVIDERS: ADMIT Internal Medicine; ATTEND Internal Medicine
DX: J20.5 Acute bronchitis due to respiratory syncytial virus (principal); R05.9 Cough, unspecified; R50.9 Fever, unspecified; I12.9 Hypertensive chronic kidney disease with stage 1 through stage 4 chronic kidney disease, or unspecified chronic kidney disease; E03.9 Hypothyroidism, unspecified; N18.9 Chronic kidney disease, unspecified; E78.5 Hyperlipidemia, unspecified; R74.01 Elevation of levels of liver transaminase levels
CPT/HCPCS: 0241U-QW; 36415; 71045-TC-FY; 71046-TC-FY; 80048; 80053; 80061; 81003; 83036; 83735; 83880; 84100; 84439; 84443; 85025; 87086; 87651; 93005; 93010; 94640; 94761; 99285-25; G0378

== ENCOUNTER 2023-03-06 23:14 | Inpatient (IN) | payer OTHER ==
[2023-03-06 23:28] VITALS: BMI 26.6
[2023-03-07 00:58] LABS: EPI CELLS >36 /uL (0-25.1); HYALINE CASTS 0 /uL (0-3.1); PH,URINE 6.5 (5.0-8.0); URINE APPEARANCE CLEAR; URINE BACTERIA 112 /uL (0-1359); URINE BILIRUBIN NEGATIVE (NEGATIVE); URINE COLOR YELLOW; URINE GLUCOSE (UA) NEGATIVE (NEGATIVE); URINE KETONE NEGATIVE (NEGATIVE); URINE LEUK ESTERASE 1+ (NEGATIVE); URINE NITRITE NEGATIVE (NEGATIVE); URINE PROTEIN NEGATIVE (NEGATIVE); URINE RBC 7 /uL (0-23.9); URINE UROBILINOGEN 0.2 mg/dL (0.2-1.0); URINE WBC 69 /uL (0-25.8)
[2023-03-07 02:52] LABS: BASO % 0.6 % (0-2.0); EOS % 1.7 % (0-4.5); HEMATOCRIT 31.4 % (32.4-45.2); HEMOGLOBIN 10.3 GM/dL (10.7-15.3); LYMPH % 19.7 % (8-40); MCH 26.6 pg (25.7-33.7); MCHC 32.8 g/dl (32.0-36.0); MEAN CELL VOLUME 81.1 fl (80-96); MONO % 4.2 % (3.8-10.2); NEUT % 73.8 % (42.8-82.8); PLATELET COUNT 184 10^3/uL (134-434); RBC 3.87 M/mm3 (3.60-5.2); RDW 20.1 % (11.6-15.6); WHITE BLOOD COUNT 12.9 K/mm3 (4.0-10.0)
[2023-03-07 03:19] LABS: POTASSIUM 3.6 mmol/L (3.5-5.1)
[2023-03-07 03:21] LABS: ALBUMIN 2.4 g/dl (3.4-5.0); BLOOD UREA NITROGEN 11.7 mg/dL (7-18); CALCIUM 8.5 mg/dL (8.5-10.1)
[2023-03-07 03:24] LABS: CREATININE 0.9 mg/dL (0.55-1.3)
[2023-03-07 03:26] LABS: BILIRUBIN,TOTAL 0.4 mg/dL (0.2-1); TOT PROT 5.8 g/dl (6.4-8.2)
[2023-03-07 03:29] LABS: N-TERMINAL BNP 775.5 pg/ml (5-450)
[2023-03-07] MEDS: ACETAMINOPHEN 325 MG TABLET (FP) PO PRN (05:40)
[2023-03-07] MEDS ORDERED: CEFTRIAXONE 1 GM/50 ML BAG ONE (07:40)
[2023-03-07] MEDS ORDERED: ACETAMINOPHEN 325 MG TABLET (FP) ONE ×2 (07:41→17:32)
[2023-03-07] MEDS: ACETAMINOPHEN 325 MG TABLET (FP) PO ONE (07:45)
[2023-03-07] MEDS: CEFTRIAXONE 1 GM in DEXTROSE 5%-WATER - 100 ML IVPB ONE (07:45)
[2023-03-07] MEDS ORDERED: MEROPENEM 1 GM VIAL (RESTRICTED TO ID) IVPB ONE (10:20)
[2023-03-07] MEDS: MEROPENEM 1 GM in DEXTROSE 5%-WATER 100 ML IVPB ONE (10:39)
[2023-03-07] MEDS ORDERED: LACTATED RINGERS SOLUTION 1,000 ML/1,000 ML INFUS.BAG IV SCH (18:30)
[2023-03-07] MEDS: LACTATED RINGERS SOLUTION 1,000 ML/1,000 ML INFUS.BAG IV SCH (18:36)
[2023-03-07] MEDS ORDERED: ATORVASTATIN CA 20 MG TABLET (FP) ONE (21:07)
[2023-03-07] MEDS ORDERED: metoPROLOL SUCCINATE 25 MG TAB.SR.24H (FP) PO ONE (21:07)
[2023-03-07] MEDS ORDERED: HEPARIN NA (PORCINE) 5,000 UNITS/ML 1ML VIAL ONE (21:08)
[2023-03-07] MEDS: ATORVASTATIN CA 20 MG TABLET (FP) PO SCH (21:14)
[2023-03-07] MEDS: BUDESONIDE/FORMETEROL FUMARATE 160/4.5 mcg INHALER IH SCH (21:14)
[2023-03-07] MEDS: HEPARIN NA (PORCINE) 5,000 UNITS/ML 1ML VIAL SQ SCH (21:14)
[2023-03-07] MEDS: metoPROLOL SUCCINATE 25 MG TAB.SR.24H (FP) PO SCH (21:14)
[2023-03-08] MEDS ORDERED: ACETAMINOPHEN 325 MG TABLET (FP) ONE ×2 (06:03→16:31)
[2023-03-08 06:54] LABS: BASO % 0.4 % (0-2.0); HEMATOCRIT 33.4 % (32.4-45.2); HEMOGLOBIN 10.7 GM/dL (10.7-15.3); LYMPH % 14.9 % (8-40); MCH 26.3 pg (25.7-33.7); MCHC 32.1 g/dl (32.0-36.0); MEAN PLT VOLUME 8.7 fl (7.5-11.1); MONO % 4.9 % (3.8-10.2); NEUT % 77.8 % (42.8-82.8); PLATELET COUNT 189 10^3/uL (134-434); RBC 4.08 M/mm3 (3.60-5.2); RDW 19.6 % (11.6-15.6)
[2023-03-08 07:10] LABS: POTASSIUM 3.5 mmol/L (3.5-5.1)
[2023-03-08 07:13] LABS: CALCIUM 8.6 mg/dL (8.5-10.1)
[2023-03-08 07:14] LABS: ALBUMIN 2.5 g/dl (3.4-5.0); BLOOD UREA NITROGEN 6.9 mg/dL (7-18)
[2023-03-08 07:17] LABS: CREATININE 0.8 mg/dL (0.55-1.3)
[2023-03-08 07:18] LABS: BILIRUBIN,TOTAL 0.6 mg/dL (0.2-1)
[2023-03-08] MEDS ORDERED: amLODIPine BESYLATE 10 MG TABLET (FP) ONE (08:35)
[2023-03-08] MEDS ORDERED: LOSARTAN POTASSIUM 50 MG TABLET ONE (08:35)
[2023-03-08] MEDS ORDERED: ASPIRIN COATED 81 MG TABLET.EC ONE (08:35)
[2023-03-08] MEDS ORDERED: LEVOTHYROXINE NA 100 MCG TABLET (FP) ONE (08:36)
[2023-03-08] MEDS ORDERED: HEPARIN NA (PORCINE) 5,000 UNITS/ML 1ML VIAL ONE (08:36)
[2023-03-08] MEDS ORDERED: ASCORBIC ACID 500 MG TABLET (FP) ONE (08:36)
[2023-03-08] MEDS ORDERED: ERTAPENEM SODIUM 1 GM VIAL ONE (08:36)
[2023-03-08] MEDS ORDERED: LEVOTHYROXINE NA 25 MCG TABLET (FP) ONE (08:36)
[2023-03-08] MEDS ORDERED: metoPROLOL SUCCINATE 25 MG TAB.SR.24H (FP) PO ONE (08:36)
[2023-03-08] MEDS: ERTAPENEM SODIUM 1 GM in SODIUM CHLORIDE 50 ML IVPB SCH (08:53)
[2023-03-08] MEDS: ASPIRIN COATED 81 MG TABLET.EC PO SCH (08:55)
[2023-03-08] MEDS: ASCORBIC ACID 500 MG TABLET (FP) PO SCH (08:55)
[2023-03-08] MEDS: amLODIPine BESYLATE 10 MG TABLET (FP) PO SCH (08:55)
[2023-03-08] MEDS: LOSARTAN POTASSIUM 50 MG TABLET PO SCH (08:55)
[2023-03-08] MEDS: LEVOTHYROXINE NA 125 MCG TABLET (FP) PO SCH (08:56)
[2023-03-08] MEDS: LACTOBACILLUS ACIDOPHILUS 1 TABLET PO SCH (08:57)
[2023-03-08] MEDS ORDERED: PATIENT'S OWN MEDICATION (NON-FORMULARY) (L.Acidoph,Paracasei, B.Lactis [Probiotic] 1 EACH PO SCH (10:00)
[2023-03-08] MEDS: FOSFOMYCIN TROMETHAMINE 3 GM PO SCH (17:35)
[2023-03-09] MEDS: guaiFENesin 200 MG/10 ML 10 ML UNIT-DOSE CUPS PO PRN (23:54)
[2023-03-10] MEDS: ACETAMINOPHEN 325 MG TABLET (FP) PO PRN (19:06)
[2023-03-11] MEDS: MEROPENEM 1 GM in DEXTROSE 5%-WATER 100 ML IVPB SCH (02:22)
[2023-03-11 08:20] LABS: BASO % 0.3 % (0-2.0); EOS % 2.3 % (0-4.5); HEMATOCRIT 31.7 % (32.4-45.2); HEMOGLOBIN 10.5 GM/dL (10.7-15.3); LYMPH % 20.7 % (8-40); MCH 26.7 pg (25.7-33.7); MCHC 33.2 g/dl (32.0-36.0); MEAN CELL VOLUME 80.4 fl (80-96); MONO % 5.2 % (3.8-10.2); NEUT % 71.5 % (42.8-82.8); PLATELET COUNT 306 10^3/uL (134-434); RBC 3.94 M/mm3 (3.60-5.2); RDW 19.4 % (11.6-15.6); WHITE BLOOD COUNT 12.1 K/mm3 (4.0-10.0)
[2023-03-11 08:23] LABS: POTASSIUM 3.8 mmol/L (3.5-5.1)
[2023-03-11 08:27] LABS: CALCIUM 8.5 mg/dL (8.5-10.1)
[2023-03-11 08:28] LABS: ALBUMIN 2.3 g/dl (3.4-5.0); BLOOD UREA NITROGEN 11.5 mg/dL (7-18)
[2023-03-11 08:31] LABS: CREATININE 0.8 mg/dL (0.55-1.3)
[2023-03-11 08:32] LABS: BILIRUBIN,TOTAL 0.5 mg/dL (0.2-1); TOT PROT 6.1 g/dl (6.4-8.2)
[2023-03-12] MEDS: FOLIC ACID 1 MG TABLET (FP) PO SCH (18:41)
[2023-03-12] MEDS: METHOTREXATE 2.5 MG TABLET PO SCH (19:28)
[2023-03-12] MEDS: methylPREDNISolone NA SUCC 125 MG/2 ML VIAL IVPB ONE (22:50)
[2023-03-13] MEDS: methylPREDNISolone NA SUCC 125 MG/2 ML VIAL IVPB ONE (10:17)
[2023-03-13] MEDS ORDERED: ALBUTEROL SO4 2.5/IPRATROPIUM 0.5 INH SOL 3 ML VIAL.NEB. NEB PRN (19:09)
[2023-03-14 09:33] LABS: BASO % 0.7 % (0-2.0); HEMATOCRIT 30.9 % (32.4-45.2); HEMOGLOBIN 10.2 GM/dL (10.7-15.3); LYMPH % 11.9 % (8-40); MCH 26.5 pg (25.7-33.7); MCHC 33.1 g/dl (32.0-36.0); MEAN CELL VOLUME 80.2 fl (80-96); MEAN PLT VOLUME 7.9 fl (7.5-11.1); NEUT % 85.4 % (42.8-82.8); PLATELET COUNT 556 10^3/uL (134-434); RBC 3.86 M/mm3 (3.60-5.2); RDW 19.4 % (11.6-15.6); WHITE BLOOD COUNT 10.7 K/mm3 (4.0-10.0)
[2023-03-14 09:55] LABS: POTASSIUM 4.4 mmol/L (3.5-5.1)
[2023-03-14 09:59] LABS: ALBUMIN 2.2 g/dl (3.4-5.0); BLOOD UREA NITROGEN 17.9 mg/dL (7-18); CALCIUM 9.1 mg/dL (8.5-10.1)
[2023-03-14 10:04] LABS: BILIRUBIN,TOTAL 0.5 mg/dL (0.2-1); TOT PROT 6.1 g/dl (6.4-8.2)
[2023-03-16] MEDS ORDERED: ERTAPENEM SODIUM 1 GM in SODIUM CHLORIDE 50 ML IVPB SCH (11:46)
[2023-03-16] MEDS: ERTAPENEM SODIUM 1 GM in SODIUM CHLORIDE 50 ML IVPB SCH (14:57)
[2023-03-17] MEDS ORDERED: ERTAPENEM SODIUM 1 GM in SODIUM CHLORIDE 50 ML IVPB SCH (10:00)
[2023-03-17 14:27] VITALS: BP 128/72; PULSE 81; RESP 20; TEMP 98.2
[2023-03-19] MEDS ORDERED: METHOTREXATE 2.5 MG TABLET PO SCH (10:00)
== END 2023-03-17 16:30 | disposition home or self-care (01) | DRG 689 ==
LOC: JER 23:14 → JERBED 03-07 09:29 → J7W 03-08 20:25
PROVIDERS: ADMIT Internal Medicine; ATTEND Internal Medicine
PROC: 02HV33Z Insertion of Infusion Device into Superior Vena Cava, Percutaneous Approach (ICD-10-PCS; principal; 2023-03-17)
PROC: B518ZZA Fluoroscopy of Superior Vena Cava, Guidance (ICD-10-PCS; 2023-03-17)
DX: N39.0 Urinary tract infection, site not specified (principal); J18.9 Pneumonia, unspecified organism; J81.1 Chronic pulmonary edema; Z16.12 Extended spectrum beta lactamase (ESBL) resistance; B96.20 Unspecified Escherichia coli [E. coli] as the cause of diseases classified elsewhere; M05.79 Rheumatoid arthritis with rheumatoid factor of multiple sites without organ or systems involvement; K21.9 Gastro-esophageal reflux disease without esophagitis; E03.9 Hypothyroidism, unspecified; I10 Essential (primary) hypertension; E78.5 Hyperlipidemia, unspecified; F41.8 Other specified anxiety disorders; Z88.1 Allergy status to other antibiotic agents
CPT/HCPCS: 0241U-QW; 36415; 36569; 71046-TC-FY; 71260-TC; 74178-TC; 75820-TC-FY; 77001-TC-FY; 80053; 81003; 82962; 83880; 84484; 85025; 85651; 86140; 86431; 87040; 87086; 87186; 87635; 87899; 93005; 93010; 93306-TC; 99285-25; C1751; J1644; J8610

== ENCOUNTER 2023-10-23 13:06 | Emergency (ER) | payer OTHER ==
[2023-10-23 13:15] VITALS: RESP 20
[2023-10-23] MEDS ORDERED: IBUPROFEN 400 MG TABLET (FP) PO ONE (14:41)
[2023-10-23] MEDS: IBUPROFEN 400 MG TABLET (FP) PO ONE (14:47)
[2023-10-23 17:10] VITALS: BP 153/64; PULSE 76; TEMP 98.1
== END 2023-10-23 17:13 | disposition home or self-care (01) ==
LOC: JER 13:06
DX: M19.031 Primary osteoarthritis, right wrist (principal); M25.531 Pain in right wrist
CPT/HCPCS: 73110-TC-RT-FY; 73130-TC-RT-FY; 99283-25

== ENCOUNTER 2023-11-30 17:26 | Inpatient (IN) | payer OTHER ==
[2023-11-30 17:44] VITALS: BMI 25.7
[2023-11-30 19:03] LABS: EPI CELLS >36 /uL (0-25.1); HYALINE CASTS 0 /uL (0-3.1); PH,URINE 5.5 (5.0-8.0); URINE APPEARANCE TURBID; URINE BACTERIA 4562 /uL (0-1359); URINE BILIRUBIN NEGATIVE (NEGATIVE); URINE COLOR YELLOW; URINE GLUCOSE (UA) NEGATIVE (NEGATIVE); URINE KETONE NEGATIVE (NEGATIVE); URINE LEUK ESTERASE 3+ (NEGATIVE); URINE NITRITE NEGATIVE (NEGATIVE); URINE PROTEIN 1+ (NEGATIVE); URINE RBC 59 /uL (0-23.9); URINE UROBILINOGEN 0.2 mg/dL (0.2-1.0); URINE WBC 6514 /uL (0-25.8)
[2023-11-30] MEDS ORDERED: ERTAPENEM SODIUM 1 GM VIAL ONE (19:36)
[2023-11-30] MEDS: ERTAPENEM SODIUM 1 GM in SODIUM CHLORIDE 50 ML IVPB ONE (19:59)
[2023-11-30 20:06] LABS: BASO % 0.5 % (0-2.0); EOS % 0.6 % (0-4.5); HEMATOCRIT 38.3 % (32.4-45.2); HEMOGLOBIN 12.4 GM/dL (10.7-15.3); LYMPH % 22.8 % (8-40); MCH 26.8 pg (25.7-33.7); MCHC 32.4 g/dl (32.0-36.0); MEAN CELL VOLUME 82.6 fl (80-96); MEAN PLT VOLUME 8.4 fl (7.5-11.1); MONO % 7.2 % (3.8-10.2); NEUT % 68.9 % (42.8-82.8); PLATELET COUNT 266 10^3/uL (134-434); RBC 4.64 M/mm3 (3.60-5.2); RDW 19.9 % (11.6-15.6); WHITE BLOOD COUNT 7.4 K/mm3 (4.0-10.0)
[2023-11-30 20:20] LABS: POTASSIUM 4.4 mmol/L (3.5-5.1)
[2023-11-30 20:21] LABS: CALCIUM 9.4 mg/dL (8.5-10.1)
[2023-11-30 20:22] LABS: BLOOD UREA NITROGEN 17.2 mg/dL (7-18)
[2023-12-01] MEDS ORDERED: LEVOTHYROXINE NA 25 MCG TABLET (FP) ONE (08:03)
[2023-12-01] MEDS ORDERED: LEVOTHYROXINE NA 100 MCG TABLET (FP) ONE (08:03)
[2023-12-01 08:21] LABS: BASO % 0.3 % (0-2.0); EOS % 1.5 % (0-4.5); HEMATOCRIT 37.5 % (32.4-45.2); HEMOGLOBIN 12.3 GM/dL (10.7-15.3); LYMPH % 29.2 % (8-40); MCH 26.8 pg (25.7-33.7); MCHC 32.7 g/dl (32.0-36.0); MEAN CELL VOLUME 82.1 fl (80-96); MEAN PLT VOLUME 8.3 fl (7.5-11.1); MONO % 8.4 % (3.8-10.2); NEUT % 60.6 % (42.8-82.8); PLATELET COUNT 245 10^3/uL (134-434); RBC 4.57 M/mm3 (3.60-5.2); RDW 20.8 % (11.6-15.6); WHITE BLOOD COUNT 7.4 K/mm3 (4.0-10.0)
[2023-12-01 08:57] LABS: BLOOD UREA NITROGEN 16.1 mg/dL (7-18); CALCIUM 9.2 mg/dL (8.5-10.1)
[2023-12-01 08:59] LABS: ANISOCYTOSIS 2+; MACROCYTOSIS 1+
[2023-12-01] MEDS ORDERED: ASPIRIN COATED 81 MG TABLET.EC ONE (08:59)
[2023-12-01] MEDS ORDERED: metoPROLOL SUCCINATE 25 MG TAB.SR.24H (FP) PO ONE (08:59)
[2023-12-01] MEDS ORDERED: amLODIPine BESYLATE 10 MG TABLET (FP) ONE (08:59)
[2023-12-01] MEDS ORDERED: ERTAPENEM SODIUM 1 GM VIAL ONE (09:00)
[2023-12-01] MEDS ORDERED: IBUPROFEN 400 MG TABLET (FP) PO ONE (09:00)
[2023-12-01 09:01] LABS: CREATININE 0.8 mg/dL (0.55-1.3)
[2023-12-01] MEDS: LEVOTHYROXINE NA 125 MCG TABLET (FP) PO SCH (09:24)
[2023-12-01] MEDS: ASPIRIN COATED 81 MG TABLET.EC PO SCH (09:24)
[2023-12-01] MEDS: IBUPROFEN 400 MG TABLET (FP) PO PRN (09:24)
[2023-12-01] MEDS: amLODIPine BESYLATE 10 MG TABLET (FP) PO SCH (09:26)
[2023-12-01] MEDS: metoPROLOL SUCCINATE 25 MG TAB.SR.24H (FP) PO SCH (09:26)
[2023-12-01] MEDS: ERTAPENEM SODIUM 1 GM in SODIUM CHLORIDE 50 ML IVPB SCH (18:21)
[2023-12-01] MEDS ORDERED: ERTAPENEM SODIUM 1 GM in SODIUM CHLORIDE 50 ML IVPB SCH (19:00)
[2023-12-01] MEDS: HEPARIN NA (PORCINE) 5,000 UNITS/ML 1ML VIAL SQ SCH (21:34)
[2023-12-01] MEDS: ATORVASTATIN CA 20 MG TABLET (FP) PO SCH (21:34)
[2023-12-02 10:52] LABS: BASO % 0.6 % (0-2.0); EOS % 1.9 % (0-4.5); HEMATOCRIT 35.1 % (32.4-45.2); HEMOGLOBIN 11.7 GM/dL (10.7-15.3); LYMPH % 32.7 % (8-40); MCH 27.2 pg (25.7-33.7); MCHC 33.2 g/dl (32.0-36.0); MEAN CELL VOLUME 81.8 fl (80-96); MEAN PLT VOLUME 8.6 fl (7.5-11.1); MONO % 5.8 % (3.8-10.2); PLATELET COUNT 220 10^3/uL (134-434); RBC 4.29 M/mm3 (3.60-5.2); RDW 19.7 % (11.6-15.6); WHITE BLOOD COUNT 6.4 K/mm3 (4.0-10.0)
[2023-12-02 11:17] LABS: POTASSIUM 4.3 mmol/L (3.5-5.1)
[2023-12-02 11:22] LABS: CALCIUM 8.8 mg/dL (8.5-10.1)
[2023-12-02 11:23] LABS: ALBUMIN 2.9 g/dl (3.4-5.0)
[2023-12-02 11:26] LABS: CREATININE 0.9 mg/dL (0.55-1.3)
[2023-12-02 11:27] LABS: BILIRUBIN,TOTAL 0.4 mg/dL (0.2-1); TOT PROT 6.6 g/dl (6.4-8.2)
[2023-12-03] MEDS: ACETAMINOPHEN 500 MG TABLET (FP) PO PRN (10:22)
[2023-12-03] MEDS: LACTOBACILLUS ACIDOPHILUS 1 TABLET PO SCH (12:24)
[2023-12-05 10:22] LABS: BASO % 0.5 % (0-2.0); EOS % 2.4 % (0-4.5); HEMOGLOBIN 11.6 GM/dL (10.7-15.3); LYMPH % 33.4 % (8-40); MCH 26.6 pg (25.7-33.7); MCHC 32.3 g/dl (32.0-36.0); MEAN CELL VOLUME 82.2 fl (80-96); MEAN PLT VOLUME 8.4 fl (7.5-11.1); MONO % 5.4 % (3.8-10.2); NEUT % 58.3 % (42.8-82.8); PLATELET COUNT 247 10^3/uL (134-434); RBC 4.38 M/mm3 (3.60-5.2); RDW 19.6 % (11.6-15.6)
[2023-12-05 10:47] LABS: POTASSIUM 3.5 mmol/L (3.5-5.1)
[2023-12-05 10:53] LABS: BLOOD UREA NITROGEN 18.9 mg/dL (7-18); CALCIUM 9.3 mg/dL (8.5-10.1)
[2023-12-05 10:54] LABS: ALBUMIN 2.8 g/dl (3.4-5.0)
[2023-12-05 10:57] LABS: CREATININE 0.8 mg/dL (0.55-1.3)
[2023-12-05 10:58] LABS: TOT PROT 6.4 g/dl (6.4-8.2)
[2023-12-05 10:59] LABS: BILIRUBIN,TOTAL 0.5 mg/dL (0.2-1)
[2023-12-06 08:58] VITALS: RESP 18; TEMP 97.9
[2023-12-06 14:20] VITALS: BP 162/63; PULSE 65
== END 2023-12-06 15:12 | disposition home or self-care (01) | DRG 690 ==
LOC: JER 17:26 → JERFT 17:26 → JERBED 19:19 → J6S 12-01 14:59 → OBSVTOIN 12-02 10:16
PROVIDERS: ADMIT Internal Medicine; ATTEND Internal Medicine
DX: N39.0 Urinary tract infection, site not specified (principal); Z16.12 Extended spectrum beta lactamase (ESBL) resistance; I10 Essential (primary) hypertension; E78.5 Hyperlipidemia, unspecified; E03.9 Hypothyroidism, unspecified; K21.9 Gastro-esophageal reflux disease without esophagitis; F41.9 Anxiety disorder, unspecified; M06.9 Rheumatoid arthritis, unspecified; B96.20 Unspecified Escherichia coli [E. coli] as the cause of diseases classified elsewhere
CPT/HCPCS: 36415; 80048; 80053; 81003; 85025; 87086; 87186; 99285-25; G0378; J1644